=== PATIENT | male | born 1965 | race African-American/Black ===

== ENCOUNTER 2018-12-10 20:37 | Inpatient (IN) | payer MEDICARE, MEDICAID ==
[~2018-12-10] VITALS: Ht 190.5 cm; Wt 102.1 kg
[~2018-12-10 20:37] MED LIST: ALPR0.5T PO; AMLO10TA4 PO; ATOR10TA60 PO; CARB200T PO; CARV25TA PO; DOCU100C28 PO; ESCITALOPRAM OX20 MG PO; FERR325T14 PO; FOLI0.8T3 PO; HYDR-2868 PO; INSU100I11 SQ; ISOS20TA4 PO; LACO200T PO; LEVE100S18 PO; LINE600I IV; METO10TA81 PO; MIRT15TA3 PO; PANT20TA2 PO; PRED-220 PO; PYRI60TA PO; SENN-87 PO; SODI650T PO; SUCR1ORA5 PO; VIT1TABL56 PO
[2018-12-10 21:00] VITALS: BP 205/75
[2018-12-10 22:10] LABS: HEMOGLOBIN 6.7 g/dL (13.0-17.5)
[2018-12-10] MEDS ORDERED: PYRIDOSTIGMINE BROMIDE 60 MG TABLET PO SCH (22:30)
[2018-12-10 23:00] VITALS: BP 185/88
--- NOTE | 2018-12-10 23:13 | RAD ---
Single view chest dated 12/10/2018. Comparison made to 11/13/2018. CLINICAL INDICATION: Ventilator dependent. FINDINGS: Single upright portable exam performed. Tracheostomy tube in place, unchanged. Heart and mediastinal contours are stable. Consolidation and volume loss throughout the left hemithorax, with some improved aeration compared to the prior exam. There is masslike areas of consolidation and architectural distortion at the left upper lobe and left base. There is been interval improvement in airspace disease throughout the right lung. There is persistent small right pleural effusion. No pneumothorax. IMPRESSION: 1. Interval improvement in bilateral airspace disease compared to the 11/13/2018 exam. 2. Persistent areas of consolidation, architectural distortion and volume loss of the left upper lobe and left lower lobe, possibly related to known mass and/or scarring. Correlate clinically. 3. Small right pleural effusion. Electronically signed by: Martin Quinones MD (12/10/2018 11:10 PM) [facility]
[2018-12-10] MEDS: IV DEXTROSE 5 %-0.45 % NACL 1,000 ML IV SCH (23:36)
[2018-12-10 23:58] VITALS: BP 154/85
[2018-12-11] VITALS (26 sets, daily range): BP systolic 94–171; BP diastolic 51–96
[2018-12-11 00:55] LABS: BASE EXCESS ABG 11 mmol/L (-3-3); HCO3 ABG 36 mmol/L (21-28); PCO2 ABG 52 mmHg (35-46); PO2 ABG 191 mmHg (75-108); SAT O2 ABG 99 % (92-99)
[2018-12-11 01:11] LABS: FIO2 ABG 30
[2018-12-11 04:20] LABS: BASO # 0.1 x10^3/uL (0.0-0.2); BASO % 1 % (0-3); EOS # 0.3 x10^3/uL (0.0-0.7); EOS % 3 % (0-3); LYMPH # 0.5 x10^3/uL (1.0-4.8); LYMPH % 6 % (24-48); MEAN CORPUSCULAR HEMOGLOBIN 29 pg (25-35); MEAN CORPUSCULAR HGB CONC 34 g/dL (31-37); MEAN CORPUSCULAR VOLUME 87 fL (79-100); MONO # 1.2 x10^3/uL (0.0-1.1); MONO % 13 % (0-9); NEUT # 7.1 x10^3uL (1.8-7.7); NEUT % 77 % (31-73); PLATELET COUNT 158 x10^3/uL (140-400); RED BLOOD COUNT 2.17 x10^6/uL (4.30-5.70); RED CELL DISTRIBUTION WIDTH 16.4 % (11.5-14.5); WHITE BLOOD COUNT 9.2 x10^3/uL (4.0-11.0)
[2018-12-11 04:22] LABS: HEMATOCRIT 18.9 % (39.0-53.0); HEMOGLOBIN 6.4 g/dL (13.0-17.5)
[2018-12-11 04:29] LABS: PROTHROMBIN TIME PATIENT 17.9 SEC (11.7-14.0)
[2018-12-11 04:39] LABS: ALBUMIN 1.5 g/dL (3.4-5.0); ALBUMIN/GLOBULIN RATIO 0.4 (1.0-1.7); CREATININE 2.3 mg/dL (0.7-1.3); POTASSIUM 3.3 mmol/L (3.5-5.1); TOTAL BILIRUBIN 0.5 mg/dL (0.2-1.0); TOTAL PROTEIN 4.9 g/dL (6.4-8.2)
[2018-12-11 08:28] LABS: BASE EXCESS ABG 9 mmol/L (-3-3); HCO3 ABG 32 mmol/L (21-28); PCO2 ABG 42 mmHg (35-46); PO2 ABG 66 mmHg (75-108); SAT O2 ABG 93 % (92-99)
[2018-12-11 08:37] LABS: FIO2 ABG 30
--- NOTE | 2018-12-11 09:50 | PDOC2 ---
GI CONSULT Reason For Consult: GI Bleed HPI: HPI: 53 y/o male from [facility] who Dr. Duran has previously seen for h/o upper GI bleed. Had EGD at [facility] on 10/25/18 for dark-colored material from NG tube that showed low-grade reflux esophagitis, tiny hiatal hernia, and multiple erosions in the antrum (possibly related to NG tube). Placed on PPI without further bleeding issues. Has tracheostomy and PEG tube. No previous colonoscopy. No GB, liver, or pancreas history. ?SBO history at [facility]. Difficult history from him though he is very pleasant. Indicates some RLQ pain. Sent to [facility] for hematochezia. Hgb 6.7 and now 6.4 s/p 2 units pRBCs. H/o CKD, Cr 2.3 w/ BUN 39. INR is 1.5. Bleeding scan on 12/10 was c/w active GI bleed originating near splenic flexure. Per RN, passed red blood with clots this morning. Vitals are stable - actually sometimes has been hypertensive. IR is involved, concern w/ CKD - possibly would need dialysis if angio pursued. PMH: PMH: HTN, myasthenia gravis, seizures, pulm HTN, pulm fibrosis, TBI, CKD, thymoma, HLD, CVA, CAD, depression, dementia, thymectomy, CABG and stent, craniotomy FH: Family History: Cancer (father - colon?) Social History: Smoke: No ROS: Difficult to obtain. Vitals: Vitals: Vital Signs Date Time Temp Pulse Resp B/P (MAP) Pulse Ox O2 Delivery O2 Flow Rate FiO2 12/11/18 09:39 100 Ventilator 12/11/18 06:28 97.9 75 13 150/74 97.9 Labs: Labs: Laboratory Tests Test 12/10/18 22:00 12/11/18 00:50 12/11/18 04:10 12/11/18 08:20 Hemoglobin 6.7 g/dL (13.0-17.5) 6.4 g/dL (13.0-17.5) Hematocrit 21.0 % (39.0-53.0) 18.9 % (39.0-53.0) Mean Corpuscular Hemoglobin Concent 32 g/dL (31-37) 34 g/dL (31-37) O2 Saturation 99 % (92-99) 93 % (92-99) Arterial Blood pH 7.46 (7.35-7.45) 7.51 (7.35-7.45) Arterial Blood pCO2 at Patient Temp 52 mmHg (35-46) 42 mmHg (35-46) Arterial Blood pO2 at Patient Temp 191 mmHg (75-108) 66 mmHg (75-108) Arterial Blood HCO3 36 mmol/L (21-28) 32 mmol/L (21-28) Arterial Blood Base Excess 11 mmol/L (-3-3) 9 mmol/L (-3-3) FiO2 30 30 White Blood Count 9.2 x10^3/uL (4.0-11.0) Red Blood Count 2.17 x10^6/uL (4.30-5.70) Mean Corpuscular Volume 87 fL (79-100) Mean Corpuscular Hemoglobin 29 pg (25-35) Red Cell Distribution Width 16.4 % (11.5-14.5) Platelet Count 158 x10^3/uL (140-400) Neutrophils (%) (Auto) 77 % (31-73) Lymphocytes (%) (Auto) 6 % (24-48) Monocytes (%) (Auto) 13 % (0-9) Eosinophils (%) (Auto) 3 % (0-3) Basophils (%) (Auto) 1 % (0-3) Neutrophils # (Auto) 7.1 x10^3uL (1.8-7.7) Lymphocytes # (Auto) 0.5 x10^3/uL (1.0-4.8) Monocytes # (Auto) 1.2 x10^3/uL (0.0-1.1) Eosinophils # (Auto) 0.3 x10^3/uL (0.0-0.7) Basophils # (Auto) 0.1 x10^3/uL (0.0-0.2) Prothrombin Time 17.9 SEC (11.7-14.0) Prothromb Time International Ratio 1.5 (0.8-1.1) Sodium Level 142 mmol/L (136-145) Potassium Level 3.3 mmol/L (3.5-5.1) Chloride Level 105 mmol/L (98-107) Carbon Dioxide Level 34 mmol/L (21-32) Anion Gap 3 (6-14) Blood Urea Nitrogen 39 mg/dL (8-26) Creatinine 2.3 mg/dL (0.7-1.3) Estimated GFR (Cockcroft-Gault) 36.0 BUN/Creatinine Ratio 17 (6-20) Glucose Level 103 mg/dL (70-99) Calcium Level 8.0 mg/dL (8.5-10.1) Total Bilirubin 0.5 mg/dL (0.2-1.0) Aspartate Amino Transf (AST/SGOT) 12 U/L (15-37) Alanine Aminotransferase (ALT/SGPT) 14 U/L (16-63) Alkaline Phosphatase 60 U/L (46-116) Total Protein 4.9 g/dL (6.4-8.2) Albumin 1.5 g/dL (3.4-5.0) Albumin/Globulin Ratio 0.4 (1.0-1.7) Test 12/11/18 08:31 Glucose (Fingerstick) 99 mg/dL (70-99) Allergies: Coded Allergies: caffeine (Verified Allergy, Intermediate, 11/13/18) pt from select clindamycin (Verified Allergy, Intermediate, 11/13/18) from select clonidine (Verified Allergy, Intermediate, 11/13/18) from select shellfish derived (Verified Allergy, Intermediate, 11/13/18) from select Medications: Current Medications Medications (Trade) Dose Ordered Sig/John Route PRN Reason Start Time Stop Time Status Last Admin Dose Admin Pyridostigmine [place] (Mestinon) 60 mg QID PO 12/10/18 22:30 12/10/18 23:42 Dextrose/Sodium Chloride 1,000 ml @ 75 mls/hr [id number] IV 12/10/18 23:15 12/10/18 23:36 Imaging: Imaging: CXR 12/10 IMPRESSION: 1. Interval improvement in bilateral airspace disease compared to the 11/13/2018 exam. 2. Persistent areas of consolidation, architectural distortion and volume loss of the left upper lobe and left lower lobe, possibly related to known mass and/or scarring. Correlate clinically. 3. Small right pleural effusion. PE: GEN: NAD HEENT: Atraumatic, PERRL, tracheostomy LUNGS: diminished HEART: RRR ABD: NABS, S/ND, RLQ discomfort, PEG EXTREMITY: No edema SKIN: No rashes, no jaundice NEURO/PSYCH: A & O 3 A/P: A/P: Hematochezia, anemia, +bleeding scan CKD H/o "upper GI bleed" - recent EGD at another facility - ?erosions from NG tube GERD - has been on PPI CRC screen, FH CRC - none S/p tracheostomy and PEG placement ?h/o SBO -- Have d/w Dr. Nixon/IR - colonoscopy unlikely of any benefit - will observe for now and consider angio if bleeding continues. NPO, IV acid-poultry farmer, transfuse as needed. ZANE BEE December 11, 2018 09:50
[2018-12-11] MEDS ORDERED: ACETAMINOPHEN 650 MG/20.3 ML SOLUTION. PEG PRN (10:15)
--- NOTE | 2018-12-11 10:23 | PDOC ---
Infectious Disease Note Vital Sign Vital Signs Vital Signs Date Time Temp Pulse Resp B/P (MAP) Pulse Ox O2 Delivery O2 Flow Rate FiO2 12/11/18 09:39 100 Ventilator 12/11/18 06:28 97.9 75 13 150/74 97.9 Labs Lab Laboratory Tests Test 12/10/18 22:00 12/11/18 00:50 12/11/18 04:10 12/11/18 08:20 Hemoglobin 6.7 g/dL (13.0-17.5) 6.4 g/dL (13.0-17.5) Hematocrit 21.0 % (39.0-53.0) 18.9 % (39.0-53.0) Mean Corpuscular Hemoglobin Concent 32 g/dL (31-37) 34 g/dL (31-37) O2 Saturation 99 % (92-99) 93 % (92-99) Arterial Blood pH 7.46 (7.35-7.45) 7.51 (7.35-7.45) Arterial Blood pCO2 at Patient Temp 52 mmHg (35-46) 42 mmHg (35-46) Arterial Blood pO2 at Patient Temp 191 mmHg (75-108) 66 mmHg (75-108) Arterial Blood HCO3 36 mmol/L (21-28) 32 mmol/L (21-28) Arterial Blood Base Excess 11 mmol/L (-3-3) 9 mmol/L (-3-3) FiO2 30 30 White Blood Count 9.2 x10^3/uL (4.0-11.0) Red Blood Count 2.17 x10^6/uL (4.30-5.70) Mean Corpuscular Volume 87 fL (79-100) Mean Corpuscular Hemoglobin 29 pg (25-35) Red Cell Distribution Width 16.4 % (11.5-14.5) Platelet Count 158 x10^3/uL (140-400) Neutrophils (%) (Auto) 77 % (31-73) Lymphocytes (%) (Auto) 6 % (24-48) Monocytes (%) (Auto) 13 % (0-9) Eosinophils (%) (Auto) 3 % (0-3) Basophils (%) (Auto) 1 % (0-3) Neutrophils # (Auto) 7.1 x10^3uL (1.8-7.7) Lymphocytes # (Auto) 0.5 x10^3/uL (1.0-4.8) Monocytes # (Auto) 1.2 x10^3/uL (0.0-1.1) Eosinophils # (Auto) 0.3 x10^3/uL (0.0-0.7) Basophils # (Auto) 0.1 x10^3/uL (0.0-0.2) Prothrombin Time 17.9 SEC (11.7-14.0) Prothromb Time International Ratio 1.5 (0.8-1.1) Sodium Level 142 mmol/L (136-145) Potassium Level 3.3 mmol/L (3.5-5.1) Chloride Level 105 mmol/L (98-107) Carbon Dioxide Level 34 mmol/L (21-32) Anion Gap 3 (6-14) Blood Urea Nitrogen 39 mg/dL (8-26) Creatinine 2.3 mg/dL (0.7-1.3) Estimated GFR (Cockcroft-Gault) 36.0 BUN/Creatinine Ratio 17 (6-20) Glucose Level 103 mg/dL (70-99) Calcium Level 8.0 mg/dL (8.5-10.1) Total Bilirubin 0.5 mg/dL (0.2-1.0) Aspartate Amino Transf (AST/SGOT) 12 U/L (15-37) Alanine Aminotransferase (ALT/SGPT) 14 U/L (16-63) Alkaline Phosphatase 60 U/L (46-116) Total Protein 4.9 g/dL (6.4-8.2) Albumin 1.5 g/dL (3.4-5.0) Albumin/Globulin Ratio 0.4 (1.0-1.7) Test 12/11/18 08:31 Glucose (Fingerstick) 99 mg/dL (70-99) Objective Assessment pt seen, consult dictated Plan Plan of Care -- RENEE CARRILLO MD December 11, 2018 10:23
--- NOTE | 2018-12-11 10:24 | PDOC ---
Provider Note Provider Note history and physical dictated # [id number] RYLEY CLARK MD December 11, 2018 10:24
--- NOTE | 2018-12-11 10:25 | PDOC ---
Provider Note Provider Note IR NOTE Consulted for lower GI bleed. Positive tagged rbc scan localized to splenic flexure, descending colon. Patient currently hemodynamically normal. No distress, but continued intermittent blood per rectum per nurse. Patient also with renal failure, Cr 2.3. Nephrology consultation pending. GI consulted without plans for endoscopy or other intervention. 2 units blood given with essentially no change in Hb ( 6.7 to 6.4). 2 more units given, f/u Hb pending. INR borderline at 1.5. Will recheck in am. Ideally would continue to resuscitate and medically manage, and avoid IV contrast needed for angiography due to renal failure. Most lower gi bleeds will resolve on their own. Notably Cr has been elevated on past labs. Unsure if this represents baseline renal function. Await Nephrology input. Should patient become hemodynamically less stable, or clinically show evidence of more rapid bleeding. Angiography will be re-visited. QASIM LANGFORD MD December 11, 2018 10:25
[2018-12-11] MEDS ORDERED: POTASSIUM CHLORIDE 20 MEQ/15 ML ORAL LIQUID. PEG ONE (10:30)
[2018-12-11 10:45] LABS: HEMATOCRIT 23.5 % (39.0-53.0)
[2018-12-11] MEDS ORDERED: levETIRAcetam 1,000 MG in IV DEXTROSE 5% 100ML 100 ML IV SCH (11:00)
--- NOTE | 2018-12-11 11:11 | HP ---
ADMIT DATE: 12/11/2018 LOCATION: He is in Intensive Care Unit, room 112. HISTORY OF PRESENT ILLNESS: The patient is a 53-year-old -[place] male, who resides in a retirement with a past history of traumatic brain injury, seizure disorder, pulmonary fibrosis, hypertension, gastroesophageal reflux disease, coronary artery disease, depression, pulmonary hypertension and chronic kidney disease stage 3, admitted to [facility] at the Emergency Room on 12/14/2018 with nausea, vomiting and abdominal pain. He developed aspiration pneumonia, had to be intubated and placed on a ventilator. He could not be weaned off the ventilator. Tracheostomy and PEG were placed on 10/31/2018 as he had oropharyngeal dysphagia. His aspiration pneumonia was treated. He had labile hypertension. He could not be weaned off the ventilator, was admitted to [facility] on 11/06/2018. The patient could not be weaned off the ventilator at this facility either. He did have heme-positive stools. 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 At [facility], he did have a heme-positive stool. He did not receive any anticoagulation. The patient does have a seizure disorder and received Keppra. While he was at [facility], on 12/10/2018, he developed bloody stools with clots and had several bloody stools. As a result of that, the patient was sent to the [facility], where he had GI bleeding scan, which showed active bleeding at the splenic flexure of the colon, prompting admission to the Intensive Care Unit at [facility]. Through the night, he has continued to have some rectal bleeding and his hemoglobin was low at 6.7 to 6.4 and he has received 2 units of packed red blood cells during the night and is receiving another 2 units shortly. The patient's serum creatinine is stable around 2.3. ALLERGIES AND INTOLERANCES: CAFFEINE, CLINDAMYCIN, CLONIDINE AND SHELLFISH. MEDICATIONS PRIOR TO ADMISSION: Include lorazepam 0.5 mg IV every 6 hours p.r.n., Mucomyst 3 mL every 6 hours per respiratory therapy, hydralazine 100 mg t.i.d., carvedilol 25 mg b.i.d., cholestyramine 4 grams b.i.d., amlodipine 10 mg every day, DuoNebs nebulized treatments every 6 hours, furosemide 80 mg every day, trazodone 75 mg at bedtime, mirtazapine 30 mg at bedtime, Lexa 5/325 one every 6 hours p.r.n., melatonin 3 mg at bedtime, hydralazine 25 mg IV every 6 hours p.r.n. for systolic blood pressure greater than 160 or diastolic greater than 100, isosorbide dinitrate 20 mg every 8 hours, Protonix 20 mg every day, Humalog insulin low dose sliding scale every 6 hours, ferrous sulfate 300 mg b.i.d., Carafate 1 gram b.i.d., Tylenol 650 mg every 4 hours p.r.n. and atorvastatin 10 mg at bedtime. He is on lacosamide 200 mg b.i.d. Keppra, he is on 1500 mg b.i.d. He is on carbamazepine 300 mg b.i.d., vitamin B12 at 1000 mcg daily, Nephro-Zhanna 1 every day, Lexapro 20 mg every day, prednisone 10 mg every day, lorazepam 0.5 mg every 6 hours through his PEG, alprazolam 0.5 mg every 6 hours p.r.n. and Mestinon 60 mg every 6 hours. PAST MEDICAL HISTORY: Significant for myasthenia gravis, seizure disorder, pulmonary hypertension and pulmonary fibrosis, traumatic brain injury, chronic kidney disease stage 3, thymic carcinoma treated with thymectomy, hypertension, hyperlipidemia, cerebrovascular accident, hypertension, hyperlipidemia, gastroesophageal reflux disease, congestive heart failure, depression, coronary artery disease and also as mentioned above. SOCIAL HISTORY: Unavailable. FAMILY HISTORY: Unavailable. REVIEW OF SYSTEMS: Unavailable, as he is on the ventilator. PHYSICAL EXAMINATION: VITAL SIGNS: Temperature is 97.9 degrees, apical pulse regular at 75, respiratory rate 13, blood pressure 150/74 and oxygen saturation 100% on the ventilator. HEENT: Eyes are closed. Mouth is symmetrical. GENITOURINARY: He has got a tracheostomy hooked up to the ventilator. HEART: Reveals an S1, S2. There is no S3 or murmur. LUNGS: Clear anteriorly with occasional rhonchi on the left. ABDOMEN: Soft. Bowel sounds positive, not distended. He has got a gastrostomy tube. EXTREMITIES: Lower extremities without edema. SKIN: No rashes. NEUROLOGICAL EXAMINATION: He is sleeping. LABORATORY DATA: Review of his laboratory tests, his white count was 9.2; hemoglobin 6.4, it was 6.7; platelet count 158,000; polys 77 and lymphocytes 6. INR was 1.5. Sodium 142, potassium 3.3, chloride 105, total CO2 of 34, BUN 39, creatinine 2.3 and blood sugar 103. Liver function tests were normal. Albumin was 1.5. He had a chest x-ray done, which showed interval improvement compared to 10/24/2018, with persistent areas of consolidation and volume loss in the left upper lobe and left lower lobe and a small right pleural effusion. He had an electrocardiogram ordered, but the report is not on the chart. ASSESSMENT: 1. Lower gastrointestinal bleed from the splenic flexure of the colon. 2. Acute blood loss anemia. 3. Acute hypoxic and hypercapnic respiratory failure, on the ventilator. 4. Myasthenia gravis. 5. Tracheostomy. 6. Oropharyngeal dysphagia. 7. Chronic kidney disease stage 3. 8. Coronary artery disease. 9. Right subclavian vein thrombosis. 10. Hypertension. 11. Hyperlipidemia. 12. Seizure disorder. 13. Hypokalemia. 14. Severe protein-calorie malnutrition. PLAN: The plan at this time is to consult Dr. Duran for GI and briefly discuss the case with him. He has been seen by the nurse practitioner for the GI doctor. We will consult Dr. Ordaz for Nephrology for his chronic kidney disease and Dr. Nixon, the interventional radiologist, who is aware and on standby in case he needs an embolization procedure to stop the bleeding at the splenic flexure of the colon. Obviously, this is going to be a risk for his renal failure and it is possible it could advance his renal failure to even end-stage renal disease. We will continue with his IV fluids, check his hemoglobin and hematocrit every 6 hours and transfuse 2 units of packed red blood cells if the hemoglobin is less than 7. Keep him in the Intensive Care Unit and he will be on the ventilator. Continue his nebulizer treatments. We will renew the Keppra and the Tegretol and the other medications for his seizures. We will also consult Dr. Brian Meza for Infectious Disease, who has followed up at the other hospital and Dr. Morgan for Pulmonary for ventilator management and recheck his labs again tomorrow. RYLEY CLARK MD DR: GUS/philly JOB#: [id number] / [id number]
[2018-12-11] MEDS: PYRIDOSTIGMINE BROMIDE 60 MG TABLET PEG SCH ×3 (11:21→23:41)
[2018-12-11] MEDS: SUCRALFATE 1 GM/10 ML ORAL.SUSP. PEG SCH ×2 (11:21→20:38)
[2018-12-11] MEDS: predniSONE 10 MG TABLET PEG SCH (11:21)
[2018-12-11] MEDS: carBAMazepine 200 MG/10 ML ORAL.SUSP PEG SCH ×2 (11:21→20:37)
[2018-12-11] MEDS: LANSOPRAZOLE 30 MG TAB.RAP.DR PEG SCH (11:21)
[2018-12-11] MEDS: LACOSAMIDE 200 MG TABLET PEG SCH ×2 (11:21→20:37)
[2018-12-11] MEDS: FAMOTIDINE 20 MG/2 ML VIAL IVP SCH ×2 (11:21→20:37)
--- NOTE | 2018-12-11 11:44 | PDOC2 ---
CONSULT Date of Consult Date of Consult DATE: 12/11/18 TIME: 11:20 Reason for Consult Reason for Consult: " ckd may need dialysis after IR procedure" Source Source: Chart review History of Present Illness Reason for Visit: Pt is a 53-year-old -[place] male,who resides in a shelter with a past history of traumatic brain injury, Seizure disorder, pulmonary fibrosis, hypertension, coronary artery disease, depression, pulmonary hypertension and chronic kidney disease stage 3, He was hospitalized at [facility] with nausea, vomiting and abdominal pain. He developed aspiration pneumonia, had to be intubated and placed on a ventilator. He could not be weaned off the ventilator. Tracheostomy and PEG were placed on 10/31/2018 as he had oropharyngeal dysphagia. 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 While at [facility] , on 12/10/2018, he developed several bloody stools with clots and he was sent to [facility] He underwent GI bleeding scan, which showed active bleeding at the splenic flexure of the colon, S/P PRBC . Currently stable. Good UOP Social History No Current Medications Current Medications Current Medications Alprazolam (Xanax) 0.5 mg PRN Q6HRS PRN PO ANXIETY / AGITATION; Start 12/10/18 at 22:00 Pyridostigmine Dewy Rose (Mestinon) 60 mg QID PO Last administered on 12/10/18at 23:42; Admin Dose 60 MG; Start 12/10/18 at 22:30; Stop 12/11/18 at 10:20; Status DC Dextrose/Sodium Chloride 1,000 ml @ 75 mls/hr [id number] IV Last administered on 12/10/18at 23:36; Admin Dose 75 MLS/HR; Start 12/10/18 at 23:15 Famotidine (Pepcid Vial) 20 mg BID IVP ; Start 12/11/18 at 11:00 Albuterol/ Ipratropium (Duoneb) 3 ml RTQID NEB ; Start 12/11/18 at 12:00 Pantoprazole Sodium (Protonix) 40 mg DAILYAC PO ; Start 12/12/18 at 07:30; Stop 12/12/18 at 07:30; Status DC Acetaminophen (Tylenol) 650 mg PRN Q6HRS PRN PEG MILD PAIN / TEMP; Start 12/11/18 at 10:15 Sucralfate (Carafate) 1 gm BID PEG ; Start 12/11/18 at 11:00 Atorvastatin Calcium (Lipitor) 10 mg QHS PEG ; Start 12/11/18 at 21:00 Levetiracetam 1000 mg/Dextrose 110 ml @ 440 mls/hr Q12HR IV ; Start 12/11/18 at 11:00; Stop 12/11/18 at 11:00; Status DC Pyridostigmine Dewy Rose (Mestinon) 60 mg Q6HRS PEG ; Start 12/11/18 at 12:00 Prednisone (Prednisone) 10 mg DAILY PEG ; Start 12/11/18 at 11:00 Potassium Chloride (KCl Oral Soln) 20 meq 1X ONCE PEG ; Start 12/11/18 at 10:30; Stop 12/11/18 at 10:31; Status DC Lansoprazole (Prevacid) 30 mg DAILYAC PEG ; Start 12/11/18 at 11:30 Lacosamide (Vimpat) 200 mg BID PEG ; Start 12/11/18 at 11:00 Carbamazepine (TEGretol) 300 mg BID PEG ; Start 12/11/18 at 11:00 Levetiracetam (Keppra) 1,500 mg BID PEG ; Start 12/11/18 at 11:00 Acetylcysteine (Mucomyst 20% Resp Treatment) 600 mg Q6HRS NEB ; Start 12/11/18 at 12:00 Active Scripts Active Reported Mirtazapine 15 Mg Tablet 1 Tab PO QHS Hydralazine Hcl 25 Mg Tablet 3 Tab PO TID Zyvox (Linezolid) 600 Mg/300 Ml Iv.soln 600 Mg IV Q12HR Isosorbide Dinitrate 20 Mg Tablet 20 Mg PO TID Protonix (Pantoprazole Sodium) 20 Mg Tablet.dr 20 Mg PO DAILY Sodium Bicarbonate 650 Mg Tablet 2 Tab PO BID Humalog (Insulin Lispro) 100 Unit/1 Ml Insuln.pen 100 Unit SQ SSI PRN Ferrous Sulfate 325 Mg Tablet 1 Tab PO BID Carafate (Sucralfate) 1 Gm/10 Ml Oral.susp 10 Ml PO BID Atorvastatin Calcium 10 Mg Tablet 10 Mg PO HS Vimpat (Lacosamide) 200 Mg Tablet 200 Mg PO BID Levetiracetam 100 Mg/1 Ml Solution 1,500 Mg PO BID Coreg (Carvedilol) 25 Mg Tablet 25 Mg PO BIDWMEALS Tegretol (Carbamazepine) 200 Mg Tablet 300 Mg PO BID Metafolbic Tablet (Vit B12/Lmefolate Ca/Vit B6/B2) 1 Each Tablet 1 Each PO DAILY Nephro-Zhanna Tablet (Folic Acid/Vitamin B Comp W-C) 0.8 Mg Tablet 1 Tab PO DAILY Senna Lax (Sennosides) 8.6 Mg Tablet 8.6 Mg PO DAILY Docusate Sodium 100 Mg Capsule 1 Cap PO DAILY Escitalopram Oxalate 20 Mg Tablet 20 Mg PO DAILY Norvasc (Amlodipine Besylate) 10 Mg Tablet 10 Mg PO DAILY Reglan (Metoclopramide Hcl) 10 Mg Tablet 1 Tab PO TID Prednisone (Prednisone) 10 Mg Tablet 10 Mg PO DAILY Xanax (Alprazolam) 0.5 Mg Tablet 0.5 Mg PO PRN Q6HRS PRN Xanax (Alprazolam) 0.5 Mg Tablet 1 Tab PO QID Pyridostigmine Dewy Rose 60 Mg Tablet 60 Mg PO QID Allergies Allergies: Coded Allergies: caffeine (Verified Allergy, Intermediate, 11/13/18) pt from [facility] clindamycin (Verified Allergy, Intermediate, 11/13/18) from [facility] clonidine (Verified Allergy, Intermediate, 11/13/18) from [facility] shellfish derived (Verified Allergy, Intermediate, 11/13/18) from [facility] ROS Review of System As per HPI Physical Exam Physical Exam GEN: NAD HEENT: tracheostomy NECK: Supple LUNGS CTA ant , Non labored HEART: RRR ABD: PEG + EXTREMITY: No edema SKIN: No rashes, no jaundice NEURO : A & O 3 - No Ghosh Vital Signs Vital Signs Date Time Temp Pulse Resp B/P (MAP) Pulse Ox O2 Delivery O2 Flow Rate FiO2 12/11/18 09:39 100 Ventilator 12/11/18 06:28 97.9 75 13 150/74 97.9 Assessment & Plan PRIYA- on baseline ckd Due to GI bleed , Cr peaked at 2.7 Strict I/O , Continue IVF E-Lytes and acid base stable, 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 Oropharyngeal dysphagia- has PEG tube Coronary artery disease. Right subclavian vein thrombosis. Hypertension- Labile Dw RN at bedside Labs Labs Laboratory Tests Test 12/10/18 22:00 12/11/18 00:50 12/11/18 04:10 12/11/18 08:20 Hemoglobin 6.7 g/dL (13.0-17.5) 6.4 g/dL (13.0-17.5) Hematocrit 21.0 % (39.0-53.0) 18.9 % (39.0-53.0) Mean Corpuscular Hemoglobin Concent 32 g/dL (31-37) 34 g/dL (31-37) O2 Saturation 99 % (92-99) 93 % (92-99) Arterial Blood pH 7.46 (7.35-7.45) 7.51 (7.35-7.45) Arterial Blood pCO2 at Patient Temp 52 mmHg (35-46) 42 mmHg (35-46) Arterial Blood pO2 at Patient Temp 191 mmHg (75-108) 66 mmHg (75-108) Arterial Blood HCO3 36 mmol/L (21-28) 32 mmol/L (21-28) Arterial Blood Base Excess 11 mmol/L (-3-3) 9 mmol/L (-3-3) FiO2 30 30 White Blood Count 9.2 x10^3/uL (4.0-11.0) Red Blood Count 2.17 x10^6/uL (4.30-5.70) Mean Corpuscular Volume 87 fL (79-100) Mean Corpuscular Hemoglobin 29 pg (25-35) Red Cell Distribution Width 16.4 % (11.5-14.5) Platelet Count 158 x10^3/uL (140-400) Neutrophils (%) (Auto) 77 % (31-73) Lymphocytes (%) (Auto) 6 % (24-48) Monocytes (%) (Auto) 13 % (0-9) Eosinophils (%) (Auto) 3 % (0-3) Basophils (%) (Auto) 1 % (0-3) Neutrophils # (Auto) 7.1 x10^3uL (1.8-7.7) Lymphocytes # (Auto) 0.5 x10^3/uL (1.0-4.8) Monocytes # (Auto) 1.2 x10^3/uL (0.0-1.1) Eosinophils # (Auto) 0.3 x10^3/uL (0.0-0.7) Basophils # (Auto) 0.1 x10^3/uL (0.0-0.2) Prothrombin Time 17.9 SEC (11.7-14.0) Prothromb Time International Ratio 1.5 (0.8-1.1) Sodium Level 142 mmol/L (136-145) Potassium Level 3.3 mmol/L (3.5-5.1) Chloride Level 105 mmol/L (98-107) Carbon Dioxide Level 34 mmol/L (21-32) Anion Gap 3 (6-14) Blood Urea Nitrogen 39 mg/dL (8-26) Creatinine 2.3 mg/dL (0.7-1.3) Estimated GFR (Cockcroft-Gault) 36.0 BUN/Creatinine Ratio 17 (6-20) Glucose Level 103 mg/dL (70-99) Calcium Level 8.0 mg/dL (8.5-10.1) Total Bilirubin 0.5 mg/dL (0.2-1.0) Aspartate Amino Transf (AST/SGOT) 12 U/L (15-37) Alanine Aminotransferase (ALT/SGPT) 14 U/L (16-63) Alkaline Phosphatase 60 U/L (46-116) Total Protein 4.9 g/dL (6.4-8.2) Albumin 1.5 g/dL (3.4-5.0) Albumin/Globulin Ratio 0.4 (1.0-1.7) Test 12/11/18 08:31 12/11/18 10:20 Glucose (Fingerstick) 99 mg/dL (70-99) Hemoglobin 8.0 g/dL (13.0-17.5) Hematocrit 23.5 % (39.0-53.0) Mean Corpuscular Hemoglobin Concent 34 g/dL (31-37) Laboratory Tests Test 12/10/18 22:00 12/11/18 00:50 12/11/18 04:10 12/11/18 08:20 Hemoglobin 6.7 g/dL (13.0-17.5) 6.4 g/dL (13.0-17.5) Hematocrit 21.0 % (39.0-53.0) 18.9 % (39.0-53.0) Mean Corpuscular Hemoglobin Concent 32 g/dL (31-37) 34 g/dL (31-37) O2 Saturation 99 % (92-99) 93 % (92-99) Arterial Blood pH 7.46 (7.35-7.45) 7.51 (7.35-7.45) Arterial Blood pCO2 at Patient Temp 52 mmHg (35-46) 42 mmHg (35-46) Arterial Blood pO2 at Patient Temp 191 mmHg (75-108) 66 mmHg (75-108) Arterial Blood HCO3 36 mmol/L (21-28) 32 mmol/L (21-28) Arterial Blood Base Excess 11 mmol/L (-3-3) 9 mmol/L (-3-3) FiO2 30 30 White Blood Count 9.2 x10^3/uL (4.0-11.0) Red Blood Count 2.17 x10^6/uL (4.30-5.70) Mean Corpuscular Volume 87 fL (79-100) Mean Corpuscular Hemoglobin 29 pg (25-35) Red Cell Distribution Width 16.4 % (11.5-14.5) Platelet Count 158 x10^3/uL (140-400) Neutrophils (%) (Auto) 77 % (31-73) Lymphocytes (%) (Auto) 6 % (24-48) Monocytes (%) (Auto) 13 % (0-9) Eosinophils (%) (Auto) 3 % (0-3) Basophils (%) (Auto) 1 % (0-3) Neutrophils # (Auto) 7.1 x10^3uL (1.8-7.7) Lymphocytes # (Auto) 0.5 x10^3/uL (1.0-4.8) Monocytes # (Auto) 1.2 x10^3/uL (0.0-1.1) Eosinophils # (Auto) 0.3 x10^3/uL (0.0-0.7) Basophils # (Auto) 0.1 x10^3/uL (0.0-0.2) Prothrombin Time 17.9 SEC (11.7-14.0) Prothromb Time International Ratio 1.5 (0.8-1.1) Sodium Level 142 mmol/L (136-145) Potassium Level 3.3 mmol/L (3.5-5.1) Chloride Level 105 mmol/L (98-107) Carbon Dioxide Level 34 mmol/L (21-32) Anion Gap 3 (6-14) Blood Urea Nitrogen 39 mg/dL (8-26) Creatinine 2.3 mg/dL (0.7-1.3) Estimated GFR (Cockcroft-Gault) 36.0 BUN/Creatinine Ratio 17 (6-20) Glucose Level 103 mg/dL (70-99) Calcium Level 8.0 mg/dL (8.5-10.1) Total Bilirubin 0.5 mg/dL (0.2-1.0) Aspartate Amino Transf (AST/SGOT) 12 U/L (15-37) Alanine Aminotransferase (ALT/SGPT) 14 U/L (16-63) Alkaline Phosphatase 60 U/L (46-116) Total Protein 4.9 g/dL (6.4-8.2) Albumin 1.5 g/dL (3.4-5.0) Albumin/Globulin Ratio 0.4 (1.0-1.7) Test 12/11/18 08:31 12/11/18 10:20 Glucose (Fingerstick) 99 mg/dL (70-99) Hemoglobin 8.0 g/dL (13.0-17.5) Hematocrit 23.5 % (39.0-53.0) Mean Corpuscular Hemoglobin Concent 34 g/dL (31-37) Review All relevant outside records, renal labs, imaging studies, telemetry/EKG's were reviewed. Images Images GI bleeding study dated 12/10/2018. No comparison available. CLINICAL INDICATION: Bright red bloody stools. FINDINGS: Dedicated GI bleeding study performed after the intravenous menstruation 25.6 mCi of technetium 99m tagged RBCs. Imaging acquired at 5 minute frames for a total of 53 minutes. Initial 3 minute frames shows activity of the blood pool, liver and spleen. There is activity at the splenic flexure on the initial frame which extends inferiorly to fill the descending colon and sigmoid on the sequential images. No definite small bowel activity. IMPRESSION: Findings consistent with active GI bleed, probably originating near the splenic flexure of the colon. CARLOTA MURRAY MD December 11, 2018 11:44
[2018-12-11] MEDS: IPRATRPIUM/ALBUTEROL 0.5/2.5MG 3 ML NEBU. NEB SCH ×3 (11:53→19:59)
[2018-12-11] MEDS ORDERED: [UNRECOGNIZED DRUG - OTHER] NEB SCH (12:00)
[2018-12-11] MEDS ORDERED: ACETYLCYSTEINE 20% NEB SCH (12:00)
[2018-12-11] MEDS: IV DEXTROSE 5 %-0.45 % NACL 1,000 ML IV SCH (12:35)
--- NOTE | 2018-12-11 13:42 | EKG ---
[facility] [address] [place] [address] Test Date: 2018-12-11 Test Time: 06:09:12 Pat Name: KANDY THOMPSON Department: Room: 112 1 Gender: M Family [employer] Teacher: : 1965 Requested By: YRLEY CLARK Order Number: [id number] Reading MD: Measurements Intervals [place] Rate: 75 P: 118 NH: 214 QRS: 72 QRSD: 90 T: 133 QT: 426 QTc: 479 Interpretive Statements SINUS RHYTHM QRS(T) CONTOUR ABNORMALITY CONSIDER ANTEROSEPTAL INFARCT T ABNORMALITY IN HIGH LATERAL LEADS ABNORMAL ECG RI6.01 No previous ECG available for comparison
--- NOTE | 2018-12-11 14:40 | NUR ---
SS following for discharge planning. SS received notification that pt was from [facility], ; fax [phone]. SS contacted [facility] to verify pt's previous placement. [facility] verified that pt was a resident from there facility and was able to return when medically stable for discharge.
--- NOTE | 2018-12-11 14:52 | PDOC ---
PULMONARY PROGRESS NOTES Vitals Vital Signs Date Time Temp Pulse Resp B/P (MAP) Pulse Ox O2 Delivery O2 Flow Rate FiO2 12/11/18 13:35 100 Ventilator 12/11/18 13:00 75 18 131/69 (89) 12/11/18 07:00 97.8 97.8 Labs Laboratory Tests Test 12/10/18 22:00 12/11/18 00:50 12/11/18 04:10 12/11/18 08:20 Hemoglobin 6.7 g/dL (13.0-17.5) 6.4 g/dL (13.0-17.5) Hematocrit 21.0 % (39.0-53.0) 18.9 % (39.0-53.0) Mean Corpuscular Hemoglobin Concent 32 g/dL (31-37) 34 g/dL (31-37) O2 Saturation 99 % (92-99) 93 % (92-99) Arterial Blood pH 7.46 (7.35-7.45) 7.51 (7.35-7.45) Arterial Blood pCO2 at Patient Temp 52 mmHg (35-46) 42 mmHg (35-46) Arterial Blood pO2 at Patient Temp 191 mmHg (75-108) 66 mmHg (75-108) Arterial Blood HCO3 36 mmol/L (21-28) 32 mmol/L (21-28) Arterial Blood Base Excess 11 mmol/L (-3-3) 9 mmol/L (-3-3) FiO2 30 30 White Blood Count 9.2 x10^3/uL (4.0-11.0) Red Blood Count 2.17 x10^6/uL (4.30-5.70) Mean Corpuscular Volume 87 fL (79-100) Mean Corpuscular Hemoglobin 29 pg (25-35) Red Cell Distribution Width 16.4 % (11.5-14.5) Platelet Count 158 x10^3/uL (140-400) Neutrophils (%) (Auto) 77 % (31-73) Lymphocytes (%) (Auto) 6 % (24-48) Monocytes (%) (Auto) 13 % (0-9) Eosinophils (%) (Auto) 3 % (0-3) Basophils (%) (Auto) 1 % (0-3) Neutrophils # (Auto) 7.1 x10^3uL (1.8-7.7) Lymphocytes # (Auto) 0.5 x10^3/uL (1.0-4.8) Monocytes # (Auto) 1.2 x10^3/uL (0.0-1.1) Eosinophils # (Auto) 0.3 x10^3/uL (0.0-0.7) Basophils # (Auto) 0.1 x10^3/uL (0.0-0.2) Prothrombin Time 17.9 SEC (11.7-14.0) Prothromb Time International Ratio 1.5 (0.8-1.1) Sodium Level 142 mmol/L (136-145) Potassium Level 3.3 mmol/L (3.5-5.1) Chloride Level 105 mmol/L (98-107) Carbon Dioxide Level 34 mmol/L (21-32) Anion Gap 3 (6-14) Blood Urea Nitrogen 39 mg/dL (8-26) Creatinine 2.3 mg/dL (0.7-1.3) Estimated GFR (Cockcroft-Gault) 36.0 BUN/Creatinine Ratio 17 (6-20) Glucose Level 103 mg/dL (70-99) Calcium Level 8.0 mg/dL (8.5-10.1) Total Bilirubin 0.5 mg/dL (0.2-1.0) Aspartate Amino Transf (AST/SGOT) 12 U/L (15-37) Alanine Aminotransferase (ALT/SGPT) 14 U/L (16-63) Alkaline Phosphatase 60 U/L (46-116) Total Protein 4.9 g/dL (6.4-8.2) Albumin 1.5 g/dL (3.4-5.0) Albumin/Globulin Ratio 0.4 (1.0-1.7) Test 12/11/18 08:31 12/11/18 10:20 12/11/18 13:55 Glucose (Fingerstick) 99 mg/dL (70-99) Hemoglobin 8.0 g/dL (13.0-17.5) 7.3 g/dL (13.0-17.5) Hematocrit 23.5 % (39.0-53.0) Mean Corpuscular Hemoglobin Concent 34 g/dL (31-37) Laboratory Tests Test 12/10/18 22:00 12/11/18 00:50 12/11/18 04:10 12/11/18 08:20 Hemoglobin 6.7 g/dL (13.0-17.5) 6.4 g/dL (13.0-17.5) Hematocrit 21.0 % (39.0-53.0) 18.9 % (39.0-53.0) Mean Corpuscular Hemoglobin Concent 32 g/dL (31-37) 34 g/dL (31-37) O2 Saturation 99 % (92-99) 93 % (92-99) Arterial Blood pH 7.46 (7.35-7.45) 7.51 (7.35-7.45) Arterial Blood pCO2 at Patient Temp 52 mmHg (35-46) 42 mmHg (35-46) Arterial Blood pO2 at Patient Temp 191 mmHg (75-108) 66 mmHg (75-108) Arterial Blood HCO3 36 mmol/L (21-28) 32 mmol/L (21-28) Arterial Blood Base Excess 11 mmol/L (-3-3) 9 mmol/L (-3-3) FiO2 30 30 White Blood Count 9.2 x10^3/uL (4.0-11.0) Red Blood Count 2.17 x10^6/uL (4.30-5.70) Mean Corpuscular Volume 87 fL (79-100) Mean Corpuscular Hemoglobin 29 pg (25-35) Red Cell Distribution Width 16.4 % (11.5-14.5) Platelet Count 158 x10^3/uL (140-400) Neutrophils (%) (Auto) 77 % (31-73) Lymphocytes (%) (Auto) 6 % (24-48) Monocytes (%) (Auto) 13 % (0-9) Eosinophils (%) (Auto) 3 % (0-3) Basophils (%) (Auto) 1 % (0-3) Neutrophils # (Auto) 7.1 x10^3uL (1.8-7.7) Lymphocytes # (Auto) 0.5 x10^3/uL (1.0-4.8) Monocytes # (Auto) 1.2 x10^3/uL (0.0-1.1) Eosinophils # (Auto) 0.3 x10^3/uL (0.0-0.7) Basophils # (Auto) 0.1 x10^3/uL (0.0-0.2) Prothrombin Time 17.9 SEC (11.7-14.0) Prothromb Time International Ratio 1.5 (0.8-1.1) Sodium Level 142 mmol/L (136-145) Potassium Level 3.3 mmol/L (3.5-5.1) Chloride Level 105 mmol/L (98-107) Carbon Dioxide Level 34 mmol/L (21-32) Anion Gap 3 (6-14) Blood Urea Nitrogen 39 mg/dL (8-26) Creatinine 2.3 mg/dL (0.7-1.3) Estimated GFR (Cockcroft-Gault) 36.0 BUN/Creatinine Ratio 17 (6-20) Glucose Level 103 mg/dL (70-99) Calcium Level 8.0 mg/dL (8.5-10.1) Total Bilirubin 0.5 mg/dL (0.2-1.0) Aspartate Amino Transf (AST/SGOT) 12 U/L (15-37) Alanine Aminotransferase (ALT/SGPT) 14 U/L (16-63) Alkaline Phosphatase 60 U/L (46-116) Total Protein 4.9 g/dL (6.4-8.2) Albumin 1.5 g/dL (3.4-5.0) Albumin/Globulin Ratio 0.4 (1.0-1.7) Test 12/11/18 08:31 12/11/18 10:20 12/11/18 13:55 Glucose (Fingerstick) 99 mg/dL (70-99) Hemoglobin 8.0 g/dL (13.0-17.5) 7.3 g/dL (13.0-17.5) Hematocrit 23.5 % (39.0-53.0) Mean Corpuscular Hemoglobin Concent 34 g/dL (31-37) Medications Active Scripts Medications Dose Route/Sig Max Daily Dose Days Date Category Mirtazapine 15 Mg Tablet 1 Tab PO QHS 11/13/18 Reported Hydralazine Hcl 25 Mg Tablet 3 Tab PO TID 11/13/18 Reported Zyvox (Linezolid) 600 Mg/300 Ml Iv.soln 600 Mg IV Q12HR 11/13/18 Reported Isosorbide Dinitrate 20 Mg Tablet 20 Mg PO TID 11/13/18 Reported Protonix (Pantoprazole Sodium) 20 Mg Tablet.dr 20 Mg PO DAILY 11/13/18 Reported Sodium Bicarbonate 650 Mg Tablet 2 Tab PO BID 11/13/18 Reported Humalog (Insulin Lispro) 100 Unit/1 Ml Insuln.pen 100 Unit SQ SSI PRN 11/13/18 Reported Ferrous Sulfate 325 Mg Tablet 1 Tab PO BID 11/13/18 Reported Carafate (Sucralfate) 1 Gm/10 Ml Oral.susp 10 Ml PO BID 11/13/18 Reported Atorvastatin Calcium 10 Mg Tablet 10 Mg PO HS 11/13/18 Reported Vimpat (Lacosamide) 200 Mg Tablet 200 Mg PO BID 11/13/18 Reported Levetiracetam 100 Mg/1 Ml Solution 1,500 Mg PO BID 11/13/18 Reported Coreg (Carvedilol) 25 Mg Tablet 25 Mg PO BIDWMEALS 11/13/18 Reported Tegretol (Carbamazepine) 200 Mg Tablet 300 Mg PO BID 11/13/18 Reported Metafolbic Tablet (Vit B12/Lmefolate Ca/Vit B6/B2) 1 Each Tablet 1 Each PO DAILY 11/13/18 Reported Nephro-Zhanna Tablet (Folic Acid/Vitamin B Comp W-C) 0.8 Mg Tablet 1 Tab PO DAILY 11/13/18 Reported Senna Lax (Sennosides) 8.6 Mg Tablet 8.6 Mg PO DAILY 11/13/18 Reported Docusate Sodium 100 Mg Capsule 1 Cap PO DAILY 11/13/18 Reported Escitalopram Oxalate 20 Mg Tablet 20 Mg PO DAILY 11/13/18 Reported Norvasc (Amlodipine Besylate) 10 Mg Tablet 10 Mg PO DAILY 11/13/18 Reported Reglan (Metoclopramide Hcl) 10 Mg Tablet 1 Tab PO TID 11/13/18 Reported Prednisone (Prednisone) 10 Mg Tablet 10 Mg PO DAILY 11/13/18 Reported Xanax (Alprazolam) 0.5 Mg Tablet 0.5 Mg PO PRN Q6HRS PRN 11/13/18 Reported Xanax (Alprazolam) 0.5 Mg Tablet 1 Tab PO QID 11/13/18 Reported Pyridostigmine [place] 60 Mg Tablet 60 Mg PO QID 11/13/18 Reported Impression . FULL NOTE DICTATED THANKS GALLO RICHARD MD December 11, 2018 14:52
--- NOTE | 2018-12-11 19:25 | NUR ---
Patient consented to blood tx as needed for hgb < 7.0. Patient also consented for endoscopy procedures if able to be done. Patient also consented to IR angio procedure if bleeding continues and is needed. Patient understands that this may lead to a need for dialysis and gave consent for temp. dialysis cath placement if needed. DPOA was called and confirmed patients wishes.
[2018-12-11] MEDS: ALPRAZolam 0.5 MG TABLET PO PRN (20:37)
[2018-12-11] MEDS: ATORVASTATIN CALCIUM 10 MG TABLET. PEG SCH (20:37)
--- NOTE | 2018-12-11 21:49 | CONS ---
DATE OF CONSULTATION: 12/11/2018 REQUESTING PHYSICIAN: Dr. Morales. REASON FOR CONSULTATION: History of MRSA pneumonia. HISTORY OF PRESENT ILLNESS: This is a 53-year-old -[place] gentleman with history of pulmonary fibrosis and myasthenia gravis who was transferred from [facility]. The patient was transferred there from [facility] with respiratory failure, tracheostomy and on a ventilator. The patient in fact had MRSA and, I believe, Klebsiella, so he ended up getting Zyvox and Rocephin that he finished. The patient started having a GI bleed, hence the patient was transferred for further management. The patient is alert, awake. The patient denies any nausea, vomiting. Has had black stool and kailyn red blood per rectum. PAST MEDICAL HISTORY: Positive for myasthenia gravis, pulmonary fibrosis, acute kidney injury on chronic kidney disease, seizure disorder, hyperlipidemia, CVA, hypertension, gastroesophageal reflux disease, dementia, congestive heart failure, coronary artery disease, traumatic brain injury and respiratory failure on a ventilator. The patient has had a thymectomy done in the past and trach and PEG done. SOCIAL HISTORY: Negative for smoking, alcohol, illicit drug use. ALLERGIES: LISTED ALLERGIC TO CLINDAMYCIN. CURRENT MEDICATIONS: Reviewed. REVIEW OF SYSTEMS: As per HPI, all other systems reviewed are negative. PHYSICAL EXAMINATION: GENERAL: Alert, oriented gentleman, not in distress. VITAL SIGNS: Stable, afebrile. HEENT: NAD. NECK: Supple, no JVP, no lymphadenopathy. LUNGS: Decreased breath sounds. HEART: S1, S2 regular. No gallop or murmur. ABDOMEN: Soft, nontender, no organomegaly. EXTREMITIES: Significant edema of the upper extremity, more so on the right than left. Lower extremities are unremarkable. NEUROLOGIC: The patient is alert, awake, and appropriate, follows command, but unable to move much of extremities. LABORATORY DATA: The hemoglobin was down to 6.4. BUN is 39, creatinine 2.3. Chest x-ray is showing improvement of bilateral airspace disease. IMPRESSION: 1. Methicillin-resistant Staphylococcus aureus pneumonia, which has been treated. 2. Respiratory failure. 3. Gastrointestinal bleed. 4. Myasthenia gravis. RECOMMENDATIONS: 1. Would continue the GI bleed treatment per Radiology and Dr. Duran. 2. Supportive care. 3. No need for antibiotics at this stage, will closely follow and intervene if needed. Supportive care and we will continue to follow. Thank you very much, Dr. Morales, for giving me the opportunity to participate in this patient's care. RENEE CARRILLO MD DR: KIKA/philly JOB#: [id number] / [id number]
[2018-12-12] VITALS (25 sets, daily range): BP systolic 99–175; BP diastolic 47–99
--- NOTE | 2018-12-12 01:43 | CONS ---
DATE OF CONSULTATION: 12/11/2018 ATTENDING PHYSICIAN: Martin Morales M.D. REASON FOR CONSULTATION: The patient seen in Pulmonary consultation at the request of Dr. Morales for vent management. HISTORY OF PRESENT ILLNESS: The patient is a 53-year old who was residing at [facility]. He was initially admitted on 10/14/2018 at [facility] with nausea, vomiting and abdominal pain. He had 10 bouts of nonbloody, non-ground emesis and abdominal tenderness. In the Emergency Room, he was noted initially to have a pCO2 of 88. He was intubated. Eventually, he required tracheotomy. His stent at [place] included aspiration pneumonia. He was one time extubated and reintubated and underwent tracheotomy on 10/30/2018 and PEG tube placement on 10/31/2018. The patient was diagnosed with small-bowel obstruction and did not require surgery. He had a PEG tube placement and he was transferred to [facility]. Yesterday evening, he was transferred to [facility] for acute GI bleed, low hemoglobin. The patient is currently awake, alert and following commands. He is on assist control ventilation. He had an arterial blood gas this morning revealing a pH of 7.46, PaCO2 of 7.51, pCO2 of 42 and pO2 of 66. His hemoglobin in the last evening was 6.7, he has been transfused, went up to 8 and repeat was 7.3. He has been seen by the GI Service. PAST MEDICAL HISTORY: 1. Pulmonary fibrosis. 2. History of seizure disorder. 3. Hyperlipidemia. 4. Previous CVA. 5. Gastroesophageal reflux. 6. Hypertension. 7. Questionable dementia. 8. Coronary artery disease with previous stenting and CHF. 9. History of myasthenia gravis. Apparently, he underwent plasmapheresis in October 20 of this year. PAST SURGICAL HISTORY: Previous craniotomy for traumatic brain injury status post PEG tube placement on 10/31/2018 status post tracheotomy 10/30/2018. He has also had coronary artery bypass grafting and stenting in the past. He had thymectomy. ALLERGIES: Listed to CAFFEINE, CLINDAMYCIN, CODEINE and SHELLFISH. FAMILY HISTORY: Mother at 52 from brain aneurysm. Father had colon cancer and at the age of 73. SOCIAL HISTORY: No tobacco. Lived at [facility] prior to this admission. REVIEW OF SYSTEMS: Unobtainable secondary to the patient's condition. CURRENT MEDICATIONS: List was reviewed. PHYSICAL EXAMINATION: GENERAL APPEARANCE: The patient was awake, alert and following commands. VITAL SIGNS: Stable. O2 saturation was greater than 92%. HEENT: Eyes, the sclerae were nonicteric. NECK: Jugular venous distention was not elevated and could not be assessed secondary to body habitus. CHEST: Full expansion. LUNGS: Anteriorly were clear. No wheezes. CARDIOVASCULAR: Regular rate and rhythm with S1 and S2. No S3. ABDOMEN: Soft and nontender. PEG in place. EXTREMITIES: No clubbing or cyanosis. A 1+ edema. Upper right extremity was severely edematous. NEUROLOGICAL: The patient was awake, alert and following commands. A detailed neuro exam was not performed. LABORATORY DATA: Labs as indicated above. INR was 1.5. Electrolytes were deranged. BUN was elevated and creatinine was elevated. Albumin was low. RADIOLOGICAL DATA: Chest x-ray was reviewed. There are bilateral pulmonary infiltrates. There is a small right-sided effusion and persistent consolidation and architectural distortion of the left upper lobe and left lower lobe. IMPRESSION: 1. Gkcar-[id number]-[id number] hypoxemic respiratory failure. 2. Acute drop in hemoglobin. 3. Acute gastrointestinal bleed. 4. History of small-bowel obstruction, corrected with nonsurgical. 5. Prior history of chronic obstructive pulmonary disease, obstructive sleep apnea and pulmonary fibrosis along with secondary pulmonary hypertension, the patient had been on chronic steroid use. 6. History of myasthenia gravis, status post thymectomy. 7. Recent sepsis and aspiration pneumonia. 8. Chronic kidney disease. 9. History of seizure/traumatic brain injury. 10. Deep venous thrombosis of the right upper extremity. 11. Coronary artery disease with previous coronary artery bypass grafting. 12. Severe protein malnutrition. 13. Hematochezia. 14. Gastroesophageal reflux. PLAN: 1. We will continue support with assist-control ventilation at bedtime, pressure support during the day. 2. Follow GI recommendations. 3. Monitor H and H closely. 4. Interventional radiologist has been consulted. Current recommendations to be medically managed for now in order to avoid further IV contrast needed for angiography. 5. Follow Nephrology input. 6. Consult ID, already performed. 7. DVT and GI prophylaxis. 8. Nebulized treatments. 9. I do appreciate the privilege in sharing in the patient's care. Total cumulative critical care time of 40 minutes. GALLO RICHARD MD DR: Jennifer JOB#: [id number] / [id number]
[2018-12-12] MEDS: IV DEXTROSE 5 %-0.45 % NACL 1,000 ML IV SCH ×2 (02:11→15:15)
[2018-12-12 05:32] LABS: BASO # 0.1 x10^3/uL (0.0-0.2); BASO % 1 % (0-3); EOS # 0.3 x10^3/uL (0.0-0.7); EOS % 4 % (0-3); HEMATOCRIT 23.7 % (39.0-53.0); LYMPH # 0.6 x10^3/uL (1.0-4.8); LYMPH % 9 % (24-48); MEAN CORPUSCULAR HEMOGLOBIN 30 pg (25-35); MEAN CORPUSCULAR HGB CONC 34 g/dL (31-37); MEAN CORPUSCULAR VOLUME 88 fL (79-100); MONO # 1.4 x10^3/uL (0.0-1.1); MONO % 19 % (0-9); NEUT # 4.8 x10^3uL (1.8-7.7); NEUT % 67 % (31-73); PLATELET COUNT 135 x10^3/uL (140-400); RED BLOOD COUNT 2.69 x10^6/uL (4.30-5.70); RED CELL DISTRIBUTION WIDTH 15.5 % (11.5-14.5); WHITE BLOOD COUNT 7.2 x10^3/uL (4.0-11.0)
[2018-12-12 05:44] LABS: CALCIUM 7.8 mg/dL (8.5-10.1); CREATININE 2.5 mg/dL (0.7-1.3); GFR 32.7; POTASSIUM 3.5 mmol/L (3.5-5.1)
[2018-12-12] MEDS: PYRIDOSTIGMINE BROMIDE 60 MG TABLET PEG SCH ×3 (06:08→18:21)
--- NOTE | 2018-12-12 06:44 | RAD ---
AP chest. HISTORY: Respiratory failure AP view was taken of the chest. Tracheostomy tube is unchanged. There is a right pleural effusion. Patient's had a previous sternotomy. Tracheostomy tube is in good position. There is chronic atelectasis or infiltrate and bronchiectasis in the left upper lobe. There is a right pleural effusion. IMPRESSION: 1. No change compared to the prior study. Electronically signed by: Mazin Cutler MD (12/12/2018 6:41 AM) [id number]
[2018-12-12] MEDS ORDERED: PANTOPRAZOLE 40 MG TABLET.DR. PO SCH (07:30)
[2018-12-12] MEDS: LANSOPRAZOLE 30 MG TAB.RAP.DR PEG SCH (07:30)
--- NOTE | 2018-12-12 08:18 | PDOC ---
Infectious Disease Note Subjective Subjective awake, on vent ROS ROS no n/v/d/ bleeding has improved Vital Sign Vital Signs Vital Signs Date Time Temp Pulse Resp B/P (MAP) Pulse Ox O2 Delivery O2 Flow Rate FiO2 12/12/18 06:00 73 18 119/53 (75) 100 Ventilator 12/12/18 04:00 97.3 97.3 Physical Exam PHYSICAL EXAM GENERAL: Alert, oriented gentleman, not in distress. VITAL SIGNS: Stable, afebrile. HEENT: NAD. NECK: Supple, no JVP, no lymphadenopathy. LUNGS: Decreased breath sounds. HEART: S1, S2 regular. No gallop or murmur. ABDOMEN: Soft, nontender, no organomegaly. EXTREMITIES: Significant edema of the upper extremity, more so on the right than left. Lower extremities are unremarkable. NEUROLOGIC: The patient is alert, awake, and appropriate, follows command, but unable to move much of extremities. Labs Lab Laboratory Tests Test 12/11/18 08:20 12/11/18 08:31 12/11/18 10:20 12/11/18 13:55 O2 Saturation 93 % (92-99) Arterial Blood pH 7.51 (7.35-7.45) Arterial Blood pCO2 at Patient Temp 42 mmHg (35-46) Arterial Blood pO2 at Patient Temp 66 mmHg (75-108) Arterial Blood HCO3 32 mmol/L (21-28) Arterial Blood Base Excess 9 mmol/L (-3-3) FiO2 30 Glucose (Fingerstick) 99 mg/dL (70-99) Hemoglobin 8.0 g/dL (13.0-17.5) 7.3 g/dL (13.0-17.5) Hematocrit 23.5 % (39.0-53.0) Mean Corpuscular Hemoglobin Concent 34 g/dL (31-37) Test 12/11/18 18:40 12/12/18 00:00 12/12/18 05:22 Hemoglobin 7.5 g/dL (13.0-17.5) 6.2 g/dL (13.0-17.5) 8.0 g/dL (13.0-17.5) White Blood Count 7.2 x10^3/uL (4.0-11.0) Red Blood Count 2.69 x10^6/uL (4.30-5.70) Hematocrit 23.7 % (39.0-53.0) Mean Corpuscular Volume 88 fL (79-100) Mean Corpuscular Hemoglobin 30 pg (25-35) Mean Corpuscular Hemoglobin Concent 34 g/dL (31-37) Red Cell Distribution Width 15.5 % (11.5-14.5) Platelet Count 135 x10^3/uL (140-400) Neutrophils (%) (Auto) 67 % (31-73) Lymphocytes (%) (Auto) 9 % (24-48) Monocytes (%) (Auto) 19 % (0-9) Eosinophils (%) (Auto) 4 % (0-3) Basophils (%) (Auto) 1 % (0-3) Neutrophils # (Auto) 4.8 x10^3uL (1.8-7.7) Lymphocytes # (Auto) 0.6 x10^3/uL (1.0-4.8) Monocytes # (Auto) 1.4 x10^3/uL (0.0-1.1) Eosinophils # (Auto) 0.3 x10^3/uL (0.0-0.7) Basophils # (Auto) 0.1 x10^3/uL (0.0-0.2) Sodium Level 144 mmol/L (136-145) Potassium Level 3.5 mmol/L (3.5-5.1) Chloride Level 106 mmol/L (98-107) Carbon Dioxide Level 35 mmol/L (21-32) Anion Gap 3 (6-14) Blood Urea Nitrogen 41 mg/dL (8-26) Creatinine 2.5 mg/dL (0.7-1.3) Estimated GFR (Cockcroft-Gault) 32.7 Glucose Level 109 mg/dL (70-99) Calcium Level 7.8 mg/dL (8.5-10.1) Objective Assessment 1. Methicillin-resistant Staphylococcus aureus pneumonia, which has been treated. 2. Respiratory failure. 3. Gastrointestinal bleed. 4. Myasthenia gravis. Plan Plan of Care cont supportive care no antibiotics for now RENEE CARRILLO MD December 12, 2018 08:18
--- NOTE | 2018-12-12 08:43 | PDOC ---
SUBJECTIVE ROS Stable, awake , propped up in bed Per RN GI bleed and frequency of BM slowed down OBJECTIVE Vital Signs Vital Signs Date Time Temp Pulse Resp B/P (MAP) Pulse Ox O2 Delivery O2 Flow Rate FiO2 12/12/18 06:00 73 18 119/53 (75) 100 Ventilator 12/12/18 04:00 97.3 97.3 I & 0 Intake and Output 12/12/18 07:00 Intake Total 2419 ml Output Total 500 ml Balance 1919 ml Intake Oral 0 ml IV Total 765 ml Blood Product 674 ml Blood Product IV Normal Saline Flush 980 ml Output Urine Total 500 ml # Bowel Movements 2 PHYSICAL EXAM Physical Exam GEN: NAD HEENT: tracheostomy NECK: Supple LUNGS CTA ant , Non labored HEART: RRR ABD: PEG + EXTREMITY: No edema SKIN: No rashes, no jaundice NEURO : A & O 3 - No Ghosh DIAGNOSIS/ASSESSMENT Assessment & Plan PRIYA- on ckd Suspect Due to GI bleed , Cr peaked at 2.7 , stable Strict I/O , Continue IVF E-Lytes and acid base stable, 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 Oropharyngeal dysphagia- has PEG tube Coronary artery disease. Right subclavian vein thrombosis. Hypertension- Labile Dw RN at bedside COMMENT/RELEVANT DATA Meds Current Medications Medications (Trade) Dose Ordered Sig/John Start Time Stop Time Status Last Admin Dose Admin Acetaminophen (Tylenol) 650 mg PRN Q6HRS PRN 12/11/18 10:15 Acetylcysteine (Mucomyst 20% Resp Treatment) 600 mg Q6HRS 12/11/18 12:00 Cancel Albuterol/ Ipratropium (Duoneb) 3 ml RTQID 12/11/18 12:00 12/11/18 19:59 3 ML Alprazolam (Xanax) 0.5 mg PRN Q6HRS PRN 12/10/18 22:00 12/11/18 20:37 0.5 MG Atorvastatin Calcium (Lipitor) 10 mg QHS 12/11/18 21:00 12/11/18 20:37 10 MG Carbamazepine (TEGretol) 300 mg BID 12/11/18 11:00 12/11/18 20:37 300 MG Dextrose/Sodium Chloride 1,000 ml @ 75 mls/hr [id number] 12/10/18 23:15 12/12/18 02:11 75 MLS/HR Famotidine (Pepcid Vial) 20 mg BID 12/11/18 11:00 12/11/18 20:37 20 MG Lacosamide (Vimpat) 200 mg BID 12/11/18 11:00 12/11/18 20:37 200 MG Lansoprazole (Prevacid) 30 mg DAILYAC 12/11/18 11:30 12/11/18 11:21 30 MG Levetiracetam (Keppra) 1,500 mg BID 12/11/18 11:00 12/11/18 20:37 1,500 MG Levetiracetam 1000 mg/Dextrose 110 ml @ 440 mls/hr Q12HR 12/11/18 11:00 12/11/18 11:00 DC Pantoprazole Sodium (Protonix) 40 mg DAILYAC 12/12/18 07:30 12/12/18 07:30 DC Potassium Chloride (KCl Oral Soln) 20 meq 1X ONCE 12/11/18 10:30 12/11/18 10:31 DC 12/11/18 11:20 20 MEQ Prednisone (Prednisone) 10 mg DAILY 12/11/18 11:00 12/11/18 11:21 10 MG Pyridostigmine [place] (Mestinon) 60 mg Q6HRS 12/11/18 12:00 12/12/18 06:08 60 MG Sucralfate (Carafate) 1 gm BID 12/11/18 11:00 12/11/18 20:38 1 GM Lab Laboratory Tests Test 12/11/18 10:20 12/11/18 13:55 12/11/18 18:40 12/12/18 00:00 Hemoglobin 8.0 g/dL (13.0-17.5) 7.3 g/dL (13.0-17.5) 7.5 g/dL (13.0-17.5) 6.2 g/dL (13.0-17.5) Hematocrit 23.5 % (39.0-53.0) Mean Corpuscular Hemoglobin Concent 34 g/dL (31-37) Test 12/12/18 05:22 White Blood Count 7.2 x10^3/uL (4.0-11.0) Red Blood Count 2.69 x10^6/uL (4.30-5.70) Hemoglobin 8.0 g/dL (13.0-17.5) Hematocrit 23.7 % (39.0-53.0) Mean Corpuscular Volume 88 fL (79-100) Mean Corpuscular Hemoglobin 30 pg (25-35) Mean Corpuscular Hemoglobin Concent 34 g/dL (31-37) Red Cell Distribution Width 15.5 % (11.5-14.5) Platelet Count 135 x10^3/uL (140-400) Neutrophils (%) (Auto) 67 % (31-73) Lymphocytes (%) (Auto) 9 % (24-48) Monocytes (%) (Auto) 19 % (0-9) Eosinophils (%) (Auto) 4 % (0-3) Basophils (%) (Auto) 1 % (0-3) Neutrophils # (Auto) 4.8 x10^3uL (1.8-7.7) Lymphocytes # (Auto) 0.6 x10^3/uL (1.0-4.8) Monocytes # (Auto) 1.4 x10^3/uL (0.0-1.1) Eosinophils # (Auto) 0.3 x10^3/uL (0.0-0.7) Basophils # (Auto) 0.1 x10^3/uL (0.0-0.2) Sodium Level 144 mmol/L (136-145) Potassium Level 3.5 mmol/L (3.5-5.1) Chloride Level 106 mmol/L (98-107) Carbon Dioxide Level 35 mmol/L (21-32) Anion Gap 3 (6-14) Blood Urea Nitrogen 41 mg/dL (8-26) Creatinine 2.5 mg/dL (0.7-1.3) Estimated GFR (Cockcroft-Gault) 32.7 Glucose Level 109 mg/dL (70-99) Calcium Level 7.8 mg/dL (8.5-10.1) Results All relevant outside records, renal labs, imaging studies, telemetry/EKG's were reviewed. CARLOTA MURRAY MD December 12, 2018 08:43
[2018-12-12] MEDS: carBAMazepine 200 MG/10 ML ORAL.SUSP PEG SCH ×2 (09:17→21:48)
[2018-12-12] MEDS: FAMOTIDINE 20 MG/2 ML VIAL IVP SCH (09:17)
[2018-12-12] MEDS: LACOSAMIDE 200 MG TABLET PEG SCH ×2 (09:17→21:48)
[2018-12-12] MEDS: predniSONE 10 MG TABLET PEG SCH (09:17)
[2018-12-12] MEDS: SUCRALFATE 1 GM/10 ML ORAL.SUSP. PEG SCH ×2 (09:18→21:48)
[2018-12-12] MEDS: IPRATRPIUM/ALBUTEROL 0.5/2.5MG 3 ML NEBU. NEB SCH ×4 (09:27→20:20)
--- NOTE | 2018-12-12 10:09 | PDOC ---
PULMONARY PROGRESS NOTES Subjective SITTING IN CHAIR ON PS 10 NO DISTRESS Vitals Vital Signs Date Time Temp Pulse Resp B/P (MAP) Pulse Ox O2 Delivery O2 Flow Rate FiO2 12/12/18 09:27 100 Ventilator 12/12/18 06:00 73 18 119/53 (75) 12/12/18 04:00 97.3 97.3 General: Alert Lungs: Crackles Cardiovascular: S1, S2 Abdomen: Soft Neuro Exam: Alert Skin: Warm Labs Laboratory Tests Test 12/10/18 22:00 12/11/18 00:50 12/11/18 04:10 12/11/18 08:20 Hemoglobin 6.7 g/dL (13.0-17.5) 6.4 g/dL (13.0-17.5) Hematocrit 21.0 % (39.0-53.0) 18.9 % (39.0-53.0) Mean Corpuscular Hemoglobin Concent 32 g/dL (31-37) 34 g/dL (31-37) O2 Saturation 99 % (92-99) 93 % (92-99) Arterial Blood pH 7.46 (7.35-7.45) 7.51 (7.35-7.45) Arterial Blood pCO2 at Patient Temp 52 mmHg (35-46) 42 mmHg (35-46) Arterial Blood pO2 at Patient Temp 191 mmHg (75-108) 66 mmHg (75-108) Arterial Blood HCO3 36 mmol/L (21-28) 32 mmol/L (21-28) Arterial Blood Base Excess 11 mmol/L (-3-3) 9 mmol/L (-3-3) FiO2 30 30 White Blood Count 9.2 x10^3/uL (4.0-11.0) Red Blood Count 2.17 x10^6/uL (4.30-5.70) Mean Corpuscular Volume 87 fL (79-100) Mean Corpuscular Hemoglobin 29 pg (25-35) Red Cell Distribution Width 16.4 % (11.5-14.5) Platelet Count 158 x10^3/uL (140-400) Neutrophils (%) (Auto) 77 % (31-73) Lymphocytes (%) (Auto) 6 % (24-48) Monocytes (%) (Auto) 13 % (0-9) Eosinophils (%) (Auto) 3 % (0-3) Basophils (%) (Auto) 1 % (0-3) Neutrophils # (Auto) 7.1 x10^3uL (1.8-7.7) Lymphocytes # (Auto) 0.5 x10^3/uL (1.0-4.8) Monocytes # (Auto) 1.2 x10^3/uL (0.0-1.1) Eosinophils # (Auto) 0.3 x10^3/uL (0.0-0.7) Basophils # (Auto) 0.1 x10^3/uL (0.0-0.2) Prothrombin Time 17.9 SEC (11.7-14.0) Prothromb Time International Ratio 1.5 (0.8-1.1) Sodium Level 142 mmol/L (136-145) Potassium Level 3.3 mmol/L (3.5-5.1) Chloride Level 105 mmol/L (98-107) Carbon Dioxide Level 34 mmol/L (21-32) Anion Gap 3 (6-14) Blood Urea Nitrogen 39 mg/dL (8-26) Creatinine 2.3 mg/dL (0.7-1.3) Estimated GFR (Cockcroft-Gault) 36.0 BUN/Creatinine Ratio 17 (6-20) Glucose Level 103 mg/dL (70-99) Calcium Level 8.0 mg/dL (8.5-10.1) Total Bilirubin 0.5 mg/dL (0.2-1.0) Aspartate Amino Transf (AST/SGOT) 12 U/L (15-37) Alanine Aminotransferase (ALT/SGPT) 14 U/L (16-63) Alkaline Phosphatase 60 U/L (46-116) Total Protein 4.9 g/dL (6.4-8.2) Albumin 1.5 g/dL (3.4-5.0) Albumin/Globulin Ratio 0.4 (1.0-1.7) Test 12/11/18 08:31 12/11/18 10:20 12/11/18 13:55 12/11/18 18:40 Glucose (Fingerstick) 99 mg/dL (70-99) Hemoglobin 8.0 g/dL (13.0-17.5) 7.3 g/dL (13.0-17.5) 7.5 g/dL (13.0-17.5) Hematocrit 23.5 % (39.0-53.0) Mean Corpuscular Hemoglobin Concent 34 g/dL (31-37) Test 12/12/18 00:00 12/12/18 05:22 Hemoglobin 6.2 g/dL (13.0-17.5) 8.0 g/dL (13.0-17.5) White Blood Count 7.2 x10^3/uL (4.0-11.0) Red Blood Count 2.69 x10^6/uL (4.30-5.70) Hematocrit 23.7 % (39.0-53.0) Mean Corpuscular Volume 88 fL (79-100) Mean Corpuscular Hemoglobin 30 pg (25-35) Mean Corpuscular Hemoglobin Concent 34 g/dL (31-37) Red Cell Distribution Width 15.5 % (11.5-14.5) Platelet Count 135 x10^3/uL (140-400) Neutrophils (%) (Auto) 67 % (31-73) Lymphocytes (%) (Auto) 9 % (24-48) Monocytes (%) (Auto) 19 % (0-9) Eosinophils (%) (Auto) 4 % (0-3) Basophils (%) (Auto) 1 % (0-3) Neutrophils # (Auto) 4.8 x10^3uL (1.8-7.7) Lymphocytes # (Auto) 0.6 x10^3/uL (1.0-4.8) Monocytes # (Auto) 1.4 x10^3/uL (0.0-1.1) Eosinophils # (Auto) 0.3 x10^3/uL (0.0-0.7) Basophils # (Auto) 0.1 x10^3/uL (0.0-0.2) Sodium Level 144 mmol/L (136-145) Potassium Level 3.5 mmol/L (3.5-5.1) Chloride Level 106 mmol/L (98-107) Carbon Dioxide Level 35 mmol/L (21-32) Anion Gap 3 (6-14) Blood Urea Nitrogen 41 mg/dL (8-26) Creatinine 2.5 mg/dL (0.7-1.3) Estimated GFR (Cockcroft-Gault) 32.7 Glucose Level 109 mg/dL (70-99) Calcium Level 7.8 mg/dL (8.5-10.1) Laboratory Tests Test 12/11/18 10:20 12/11/18 13:55 12/11/18 18:40 12/12/18 00:00 Hemoglobin 8.0 g/dL (13.0-17.5) 7.3 g/dL (13.0-17.5) 7.5 g/dL (13.0-17.5) 6.2 g/dL (13.0-17.5) Hematocrit 23.5 % (39.0-53.0) Mean Corpuscular Hemoglobin Concent 34 g/dL (31-37) Test 12/12/18 05:22 White Blood Count 7.2 x10^3/uL (4.0-11.0) Red Blood Count 2.69 x10^6/uL (4.30-5.70) Hemoglobin 8.0 g/dL (13.0-17.5) Hematocrit 23.7 % (39.0-53.0) Mean Corpuscular Volume 88 fL (79-100) Mean Corpuscular Hemoglobin 30 pg (25-35) Mean Corpuscular Hemoglobin Concent 34 g/dL (31-37) Red Cell Distribution Width 15.5 % (11.5-14.5) Platelet Count 135 x10^3/uL (140-400) Neutrophils (%) (Auto) 67 % (31-73) Lymphocytes (%) (Auto) 9 % (24-48) Monocytes (%) (Auto) 19 % (0-9) Eosinophils (%) (Auto) 4 % (0-3) Basophils (%) (Auto) 1 % (0-3) Neutrophils # (Auto) 4.8 x10^3uL (1.8-7.7) Lymphocytes # (Auto) 0.6 x10^3/uL (1.0-4.8) Monocytes # (Auto) 1.4 x10^3/uL (0.0-1.1) Eosinophils # (Auto) 0.3 x10^3/uL (0.0-0.7) Basophils # (Auto) 0.1 x10^3/uL (0.0-0.2) Sodium Level 144 mmol/L (136-145) Potassium Level 3.5 mmol/L (3.5-5.1) Chloride Level 106 mmol/L (98-107) Carbon Dioxide Level 35 mmol/L (21-32) Anion Gap 3 (6-14) Blood Urea Nitrogen 41 mg/dL (8-26) Creatinine 2.5 mg/dL (0.7-1.3) Estimated GFR (Cockcroft-Gault) 32.7 Glucose Level 109 mg/dL (70-99) Calcium Level 7.8 mg/dL (8.5-10.1) Medications Active Scripts Medications Dose Route/Sig Max Daily Dose Days Date Category Mirtazapine 15 Mg Tablet 1 Tab PO QHS 11/13/18 Reported Hydralazine Hcl 25 Mg Tablet 3 Tab PO TID 11/13/18 Reported Zyvox (Linezolid) 600 Mg/300 Ml Iv.soln 600 Mg IV Q12HR 11/13/18 Reported Isosorbide Dinitrate 20 Mg Tablet 20 Mg PO TID 11/13/18 Reported Protonix (Pantoprazole Sodium) 20 Mg Tablet.dr 20 Mg PO DAILY 11/13/18 Reported Sodium Bicarbonate 650 Mg Tablet 2 Tab PO BID 11/13/18 Reported Humalog (Insulin Lispro) 100 Unit/1 Ml Insuln.pen 100 Unit SQ SSI PRN 11/13/18 Reported Ferrous Sulfate 325 Mg Tablet 1 Tab PO BID 11/13/18 Reported Carafate (Sucralfate) 1 Gm/10 Ml Oral.susp 10 Ml PO BID 11/13/18 Reported Atorvastatin Calcium 10 Mg Tablet 10 Mg PO HS 11/13/18 Reported Vimpat (Lacosamide) 200 Mg Tablet 200 Mg PO BID 11/13/18 Reported Levetiracetam 100 Mg/1 Ml Solution 1,500 Mg PO BID 11/13/18 Reported Coreg (Carvedilol) 25 Mg Tablet 25 Mg PO BIDWMEALS 11/13/18 Reported Tegretol (Carbamazepine) 200 Mg Tablet 300 Mg PO BID 11/13/18 Reported Metafolbic Tablet (Vit B12/Lmefolate Ca/Vit B6/B2) 1 Each Tablet 1 Each PO DAILY 11/13/18 Reported Nephro-Zhanna Tablet (Folic Acid/Vitamin B Comp W-C) 0.8 Mg Tablet 1 Tab PO DAILY 11/13/18 Reported Senna Lax (Sennosides) 8.6 Mg Tablet 8.6 Mg PO DAILY 11/13/18 Reported Docusate Sodium 100 Mg Capsule 1 Cap PO DAILY 11/13/18 Reported Escitalopram Oxalate 20 Mg Tablet 20 Mg PO DAILY 11/13/18 Reported Norvasc (Amlodipine Besylate) 10 Mg Tablet 10 Mg PO DAILY 11/13/18 Reported Reglan (Metoclopramide Hcl) 10 Mg Tablet 1 Tab PO TID 11/13/18 Reported Prednisone (Prednisone) 10 Mg Tablet 10 Mg PO DAILY 11/13/18 Reported Xanax (Alprazolam) 0.5 Mg Tablet 0.5 Mg PO PRN Q6HRS PRN 11/13/18 Reported Xanax (Alprazolam) 0.5 Mg Tablet 1 Tab PO QID 11/13/18 Reported Pyridostigmine [place] 60 Mg Tablet 60 Mg PO QID 11/13/18 Reported Impression . IMPRESSION: 1. [id number] hypoxemic respiratory failure. 2. Acute drop in hemoglobin. 3. Acute gastrointestinal bleed. 4. History of small-bowel obstruction, corrected with nonsurgical. 5. Prior history of chronic obstructive pulmonary disease, obstructive sleep apnea and pulmonary fibrosis along with secondary pulmonary hypertension, the patient had been on chronic steroid use. 6. History of myasthenia gravis, status post thymectomy. 7. Recent sepsis and aspiration pneumonia. 8. Chronic kidney disease. 9. History of seizure/traumatic brain injury. 10. Deep venous thrombosis of the right upper extremity. 11. Coronary artery disease with previous coronary artery bypass grafting. 12. Severe protein malnutrition. 13. Hematochezia. 14. Gastroesophageal reflux. Plan . PS TODAY UP TO CHAIR MONITOR HH TRANSFUSE NEEDED 1. We will continue support with assist-control ventilation at bedtime, pressure support during the day. 2. Follow GI recommendations. 3. Monitor H and H closely. 4. Interventional radiologist has been consulted. Current recommendations to be medically managed for now in order to avoid further IV contrast needed for angiography. 5. Follow Nephrology input. 6. Consult ID, already performed. 7. DVT and GI prophylaxis. 8. Nebulized treatments. 9. I do appreciate the privilege in sharing in the patient's care. GALLO RICHARD MD December 12, 2018 10:09
--- NOTE | 2018-12-12 10:31 | PDOC ---
PROGRESS NOTES Subjective Subjective alert on ventilator. lab reviewed. feels okay. Objective Objective Vital Signs Date Time Temp Pulse Resp B/P (MAP) Pulse Ox O2 Delivery O2 Flow Rate FiO2 12/12/18 09:27 100 Ventilator 12/12/18 06:00 73 18 119/53 (75) 12/12/18 04:00 97.3 97.3 Intake and Output 12/12/18 07:00 Intake Total 2419 ml Output Total 500 ml Balance 1919 ml Intake Oral 0 ml IV Total 765 ml Blood Product 674 ml Blood Product IV Normal Saline Flush 980 ml Output Urine Total 500 ml # Bowel Movements 2 Physical Exam Abdomen: Soft, Other ( gtube) Heart: Regular rate, Normal S1, Normal S2 Extremities: No edema General: Alert HEENT: Atraumatic Lungs: Other (decreased breath sounds anteriorly) Neck: Other (tracheostomy) Psych/Mental Status: Mental status NL, Mood NL Skin: No rashes Assessment Assessment 1. Lower gastrointestinal bleed from the splenic flexure of the colon. 2. Acute blood loss anemia. 3. Acute hypoxic and hypercapnic respiratory failure, on the ventilator. 4. Myasthenia gravis. 5. Tracheostomy. 6. Oropharyngeal dysphagia. 7. Chronic kidney disease stage 3. 8. Coronary artery disease. 9. Right subclavian vein thrombosis. 10. Hypertension. 11. Hyperlipidemia. 12. Seizure disorder. 13. Hypokalemia. 14. Severe protein-calorie malnutrition. Plan Plan of Care monitor for further GI bleeding monitor hgb ventilator support nurse to call me as he is involved in a code with another patient Comment Review of Relevant I have reviewed the following items nubia (where applicable) has been applied. Labs Laboratory Tests Test 12/10/18 22:00 12/11/18 00:50 12/11/18 04:10 12/11/18 08:20 Hemoglobin 6.7 g/dL (13.0-17.5) 6.4 g/dL (13.0-17.5) Hematocrit 21.0 % (39.0-53.0) 18.9 % (39.0-53.0) Mean Corpuscular Hemoglobin Concent 32 g/dL (31-37) 34 g/dL (31-37) O2 Saturation 99 % (92-99) 93 % (92-99) Arterial Blood pH 7.46 (7.35-7.45) 7.51 (7.35-7.45) Arterial Blood pCO2 at Patient Temp 52 mmHg (35-46) 42 mmHg (35-46) Arterial Blood pO2 at Patient Temp 191 mmHg (75-108) 66 mmHg (75-108) Arterial Blood HCO3 36 mmol/L (21-28) 32 mmol/L (21-28) Arterial Blood Base Excess 11 mmol/L (-3-3) 9 mmol/L (-3-3) FiO2 30 30 White Blood Count 9.2 x10^3/uL (4.0-11.0) Red Blood Count 2.17 x10^6/uL (4.30-5.70) Mean Corpuscular Volume 87 fL (79-100) Mean Corpuscular Hemoglobin 29 pg (25-35) Red Cell Distribution Width 16.4 % (11.5-14.5) Platelet Count 158 x10^3/uL (140-400) Neutrophils (%) (Auto) 77 % (31-73) Lymphocytes (%) (Auto) 6 % (24-48) Monocytes (%) (Auto) 13 % (0-9) Eosinophils (%) (Auto) 3 % (0-3) Basophils (%) (Auto) 1 % (0-3) Neutrophils # (Auto) 7.1 x10^3uL (1.8-7.7) Lymphocytes # (Auto) 0.5 x10^3/uL (1.0-4.8) Monocytes # (Auto) 1.2 x10^3/uL (0.0-1.1) Eosinophils # (Auto) 0.3 x10^3/uL (0.0-0.7) Basophils # (Auto) 0.1 x10^3/uL (0.0-0.2) Prothrombin Time 17.9 SEC (11.7-14.0) Prothromb Time International Ratio 1.5 (0.8-1.1) Sodium Level 142 mmol/L (136-145) Potassium Level 3.3 mmol/L (3.5-5.1) Chloride Level 105 mmol/L (98-107) Carbon Dioxide Level 34 mmol/L (21-32) Anion Gap 3 (6-14) Blood Urea Nitrogen 39 mg/dL (8-26) Creatinine 2.3 mg/dL (0.7-1.3) Estimated GFR (Cockcroft-Gault) 36.0 BUN/Creatinine Ratio 17 (6-20) Glucose Level 103 mg/dL (70-99) Calcium Level 8.0 mg/dL (8.5-10.1) Total Bilirubin 0.5 mg/dL (0.2-1.0) Aspartate Amino Transf (AST/SGOT) 12 U/L (15-37) Alanine Aminotransferase (ALT/SGPT) 14 U/L (16-63) Alkaline Phosphatase 60 U/L (46-116) Total Protein 4.9 g/dL (6.4-8.2) Albumin 1.5 g/dL (3.4-5.0) Albumin/Globulin Ratio 0.4 (1.0-1.7) Test 12/11/18 08:31 12/11/18 10:20 12/11/18 13:55 12/11/18 18:40 Glucose (Fingerstick) 99 mg/dL (70-99) Hemoglobin 8.0 g/dL (13.0-17.5) 7.3 g/dL (13.0-17.5) 7.5 g/dL (13.0-17.5) Hematocrit 23.5 % (39.0-53.0) Mean Corpuscular Hemoglobin Concent 34 g/dL (31-37) Test 12/12/18 00:00 12/12/18 05:22 Hemoglobin 6.2 g/dL (13.0-17.5) 8.0 g/dL (13.0-17.5) White Blood Count 7.2 x10^3/uL (4.0-11.0) Red Blood Count 2.69 x10^6/uL (4.30-5.70) Hematocrit 23.7 % (39.0-53.0) Mean Corpuscular Volume 88 fL (79-100) Mean Corpuscular Hemoglobin 30 pg (25-35) Mean Corpuscular Hemoglobin Concent 34 g/dL (31-37) Red Cell Distribution Width 15.5 % (11.5-14.5) Platelet Count 135 x10^3/uL (140-400) Neutrophils (%) (Auto) 67 % (31-73) Lymphocytes (%) (Auto) 9 % (24-48) Monocytes (%) (Auto) 19 % (0-9) Eosinophils (%) (Auto) 4 % (0-3) Basophils (%) (Auto) 1 % (0-3) Neutrophils # (Auto) 4.8 x10^3uL (1.8-7.7) Lymphocytes # (Auto) 0.6 x10^3/uL (1.0-4.8) Monocytes # (Auto) 1.4 x10^3/uL (0.0-1.1) Eosinophils # (Auto) 0.3 x10^3/uL (0.0-0.7) Basophils # (Auto) 0.1 x10^3/uL (0.0-0.2) Sodium Level 144 mmol/L (136-145) Potassium Level 3.5 mmol/L (3.5-5.1) Chloride Level 106 mmol/L (98-107) Carbon Dioxide Level 35 mmol/L (21-32) Anion Gap 3 (6-14) Blood Urea Nitrogen 41 mg/dL (8-26) Creatinine 2.5 mg/dL (0.7-1.3) Estimated GFR (Cockcroft-Gault) 32.7 Glucose Level 109 mg/dL (70-99) Calcium Level 7.8 mg/dL (8.5-10.1) Laboratory Tests Test 12/11/18 13:55 12/11/18 18:40 12/12/18 00:00 12/12/18 05:22 Hemoglobin 7.3 g/dL (13.0-17.5) 7.5 g/dL (13.0-17.5) 6.2 g/dL (13.0-17.5) 8.0 g/dL (13.0-17.5) White Blood Count 7.2 x10^3/uL (4.0-11.0) Red Blood Count 2.69 x10^6/uL (4.30-5.70) Hematocrit 23.7 % (39.0-53.0) Mean Corpuscular Volume 88 fL (79-100) Mean Corpuscular Hemoglobin 30 pg (25-35) Mean Corpuscular Hemoglobin Concent 34 g/dL (31-37) Red Cell Distribution Width 15.5 % (11.5-14.5) Platelet Count 135 x10^3/uL (140-400) Neutrophils (%) (Auto) 67 % (31-73) Lymphocytes (%) (Auto) 9 % (24-48) Monocytes (%) (Auto) 19 % (0-9) Eosinophils (%) (Auto) 4 % (0-3) Basophils (%) (Auto) 1 % (0-3) Neutrophils # (Auto) 4.8 x10^3uL (1.8-7.7) Lymphocytes # (Auto) 0.6 x10^3/uL (1.0-4.8) Monocytes # (Auto) 1.4 x10^3/uL (0.0-1.1) Eosinophils # (Auto) 0.3 x10^3/uL (0.0-0.7) Basophils # (Auto) 0.1 x10^3/uL (0.0-0.2) Sodium Level 144 mmol/L (136-145) Potassium Level 3.5 mmol/L (3.5-5.1) Chloride Level 106 mmol/L (98-107) Carbon Dioxide Level 35 mmol/L (21-32) Anion Gap 3 (6-14) Blood Urea Nitrogen 41 mg/dL (8-26) Creatinine 2.5 mg/dL (0.7-1.3) Estimated GFR (Cockcroft-Gault) 32.7 Glucose Level 109 mg/dL (70-99) Calcium Level 7.8 mg/dL (8.5-10.1) Medications Current Medications Alprazolam (Xanax) 0.5 mg PRN Q6HRS PRN PO ANXIETY / AGITATION Last administered on 12/11/18at 20:37; Start 12/10/18 at 22:00 Pyridostigmine [place] (Mestinon) 60 mg QID PO Last administered on 12/10/18at 23:42; Start 12/10/18 at 22:30; Stop 12/11/18 at 10:20; Status DC Dextrose/Sodium Chloride 1,000 ml @ 75 mls/hr [id number] IV Last administered on 12/12/18at 02:11; Start 12/10/18 at 23:15 Famotidine (Pepcid Vial) 20 mg BID IVP Last administered on 12/12/18at 09:17; Start 12/11/18 at 11:00 Albuterol/ Ipratropium (Duoneb) 3 ml RTQID NEB Last administered on 12/12/18 09:27; Start 12/11/18 at 12:00 Pantoprazole Sodium (Protonix) 40 mg DAILYAC PO ; Start 12/12/18 at 07:30; Stop 12/12/18 at 07:30; Status DC Acetaminophen (Tylenol) 650 mg PRN Q6HRS PRN PEG MILD PAIN / TEMP; Start 12/11/18 at 10:15 Sucralfate (Carafate) 1 gm BID PEG Last administered on 12/12/18 09:18; Start 12/11/18 at 11:00 Atorvastatin Calcium (Lipitor) 10 mg QHS PEG Last administered on 12/11/18 20:37; Start 12/11/18 at 21:00 Levetiracetam 1000 mg/Dextrose 110 ml @ 440 mls/hr Q12HR IV ; Start 12/11/18 at 11:00; Stop 12/11/18 at 11:00; Status DC Pyridostigmine [place] (Mestinon) 60 mg Q6HRS PEG Last administered on 12/12/18 06:08; Start 12/11/18 at 12:00 Prednisone (Prednisone) 10 mg DAILY PEG Last administered on 12/12/18 09:17; Start 12/11/18 at 11:00 Potassium Chloride (KCl Oral Soln) 20 meq 1X ONCE PEG Last administered on 12/11/18 11:20; Start 12/11/18 at 10:30; Stop 12/11/18 at 10:31; Status DC Lansoprazole (Prevacid) 30 mg DAILYAC PEG Last administered on 12/12/18 07:30; Start 12/11/18 at 11:30 Lacosamide (Vimpat) 200 mg BID PEG Last administered on 12/12/18 09:17; Start 12/11/18 at 11:00 Carbamazepine (TEGretol) 300 mg BID PEG Last administered on 12/12/18 09:17; Start 12/11/18 at 11:00 Levetiracetam (Keppra) 1,500 mg BID PEG Last administered on 12/11/18 20:37; Start 12/11/18 at 11:00 Acetylcysteine (Mucomyst 20% Resp Treatment) 600 mg Q6HRS NEB ; Start 12/11/18 at 12:00; Status Cancel Active Scripts Active Reported Mirtazapine 15 Mg Tablet 1 Tab PO QHS Hydralazine Hcl 25 Mg Tablet 3 Tab PO TID Zyvox (Linezolid) 600 Mg/300 Ml Iv.soln 600 Mg IV Q12HR Isosorbide Dinitrate 20 Mg Tablet 20 Mg PO TID Protonix (Pantoprazole Sodium) 20 Mg Tablet.dr 20 Mg PO DAILY Sodium Bicarbonate 650 Mg Tablet 2 Tab PO BID Humalog (Insulin Lispro) 100 Unit/1 Ml Insuln.pen 100 Unit SQ SSI PRN Ferrous Sulfate 325 Mg Tablet 1 Tab PO BID Carafate (Sucralfate) 1 Gm/10 Ml Oral.susp 10 Ml PO BID Atorvastatin Calcium 10 Mg Tablet 10 Mg PO HS Vimpat (Lacosamide) 200 Mg Tablet 200 Mg PO BID Levetiracetam 100 Mg/1 Ml Solution 1,500 Mg PO BID Coreg (Carvedilol) 25 Mg Tablet 25 Mg PO BIDWMEALS Tegretol (Carbamazepine) 200 Mg Tablet 300 Mg PO BID Metafolbic Tablet (Vit B12/Lmefolate Ca/Vit B6/B2) 1 Each Tablet 1 Each PO DAILY Nephro-Zhanna Tablet (Folic Acid/Vitamin B Comp W-C) 0.8 Mg Tablet 1 Tab PO DAILY Senna Lax (Sennosides) 8.6 Mg Tablet 8.6 Mg PO DAILY Docusate Sodium 100 Mg Capsule 1 Cap PO DAILY Escitalopram Oxalate 20 Mg Tablet 20 Mg PO DAILY Norvasc (Amlodipine Besylate) 10 Mg Tablet 10 Mg PO DAILY Reglan (Metoclopramide Hcl) 10 Mg Tablet 1 Tab PO TID Prednisone (Prednisone) 10 Mg Tablet 10 Mg PO DAILY Xanax (Alprazolam) 0.5 Mg Tablet 0.5 Mg PO PRN Q6HRS PRN Xanax (Alprazolam) 0.5 Mg Tablet 1 Tab PO QID Pyridostigmine [place] 60 Mg Tablet 60 Mg PO QID Vitals/I & O Vital Sign - Last 24 Hours 12/11/18 12/11/18 12/11/18 12/11/18 11:00 11:55 12:00 12:00 Pulse 75 75 Resp 18 18 B/P (MAP) 142/72 (95) 150/76 (100) Pulse Ox 100 100 100 O2 Delivery Ventilator Ventilator Ventilator Mechanical Ventilator 12/11/18 12/11/18 12/11/18 12/11/18 13:00 13:35 15:43 16:00 Pulse 75 Resp 18 B/P (MAP) 131/69 (89) Pulse Ox 100 100 99 O2 Delivery Ventilator Ventilator Ventilator Mechanical Ventilator 12/11/18 12/11/18 12/11/18 12/11/18 17:44 18:32 19:00 19:57 Pulse 70 81 Resp 18 23 B/P (MAP) 140/70 (93) 142/88 (106) Pulse Ox 99 100 100 96 O2 Delivery Ventilator Ventilator Ventilator Ventilator 12/11/18 12/11/18 12/11/18 12/11/18 20:00 20:00 21:00 22:00 Temp 97.9 97.9 Pulse 86 90 76 Resp 31 25 19 B/P (MAP) 157/80 (105) 147/96 (113) 125/66 (85) Pulse Ox 98 99 100 O2 Delivery Mechanical Ventilator Ventilator Ventilator Ventilator 12/11/18 12/11/18 12/11/18 12/12/18 23:00 23:54 23:59 00:00 Temp 97.8 97.8 Pulse 73 73 Resp 18 18 B/P (MAP) 94/70 (78) 99/55 (70) Pulse Ox 100 100 100 O2 Delivery Ventilator Ventilator Mechanical Ventilator Ventilator 12/12/18 12/12/18 12/12/18 12/12/18 00:35 00:50 01:00 01:37 Temp 97.8 97.3 97.8 97.3 Pulse 78 69 69 Resp 21 17 17 B/P (MAP) 99/55 107/49 103/51 (68) Pulse Ox 100 100 O2 Delivery Ventilator Ventilator 12/12/18 12/12/18 12/12/18 12/12/18 02:00 02:00 02:15 03:00 Temp 97.5 97.5 97.5 97.5 Pulse 68 66 64 67 Resp 16 15 16 18 B/P (MAP) 120/47 (71) 120/47 114/54 101/49 (66) Pulse Ox 100 100 O2 Delivery Ventilator Ventilator 5/23/19 12/12/18 12/12/18 12/12/18 03:42 04:00 04:00 05:00 Temp 97.3 97.3 Pulse 62 62 Resp 22 15 B/P (MAP) 105/61 (76) 129/60 (83) Pulse Ox 100 100 100 O2 Delivery Ventilator Ventilator Mechanical Ventilator Ventilator 12/12/18 12/12/18 12/12/18 05:38 06:00 09:27 Pulse 73 Resp 18 B/P (MAP) 119/53 (75) Pulse Ox 100 100 100 O2 Delivery Ventilator Ventilator Ventilator Intake and Output 12/11/18 12/11/18 12/12/18 15:00 23:00 07:00 Intake Total 350 ml 0 ml 2069 ml Output Total 250 ml 250 ml Balance 100 ml -250 ml 2069 ml RYLEY CLARK MD December 12, 2018 10:31
--- NOTE | 2018-12-12 11:20 | PDOC ---
Subjective: Subjective: Denies bleeding and pain. Objective: Objective: Reviewed w/ RN - a little bleeding after I saw yesterday morning, but none since. Vital Signs: Vital Signs Date Time Temp Pulse Resp B/P (MAP) Pulse Ox O2 Delivery O2 Flow Rate FiO2 12/12/18 11:00 62 18 119/76 (90) 100 Ventilator 12/12/18 04:00 97.3 97.3 Labs: Laboratory Tests Test 12/11/18 13:55 12/11/18 18:40 12/12/18 00:00 12/12/18 05:22 Hemoglobin 7.3 g/dL 7.5 g/dL 6.2 g/dL 8.0 g/dL White Blood Count 7.2 x10^3/uL Red Blood Count 2.69 x10^6/uL Hematocrit 23.7 % Mean Corpuscular Volume 88 fL Mean Corpuscular Hemoglobin 30 pg Mean Corpuscular Hemoglobin Concent 34 g/dL Red Cell Distribution Width 15.5 % Platelet Count 135 x10^3/uL Neutrophils (%) (Auto) 67 % Lymphocytes (%) (Auto) 9 % Monocytes (%) (Auto) 19 % Eosinophils (%) (Auto) 4 % Basophils (%) (Auto) 1 % Neutrophils # (Auto) 4.8 x10^3uL Lymphocytes # (Auto) 0.6 x10^3/uL Monocytes # (Auto) 1.4 x10^3/uL Eosinophils # (Auto) 0.3 x10^3/uL Basophils # (Auto) 0.1 x10^3/uL Sodium Level 144 mmol/L Potassium Level 3.5 mmol/L Chloride Level 106 mmol/L Carbon Dioxide Level 35 mmol/L Anion Gap 3 Blood Urea Nitrogen 41 mg/dL Creatinine 2.5 mg/dL Estimated GFR (Cockcroft-Gault) 32.7 Glucose Level 109 mg/dL Calcium Level 7.8 mg/dL PE: GEN: NAD HEENT: keeps eyes closed LUNGS: trach/vent HEART: RRR ABD: NABS, S/ND/NT NEURO/PSYCH: A & O 3 A/P: Hematochezia, anemia, +bleeding scan - has transfused 6 units total CKD H/o "upper GI bleed" - ?erosions from NG tube on EGD at [facility] in 10/2018 -- Bleeding stopped? Continue same per GI for now. Looks like getting meds per PEG - will change from IV H2 francesca to PPI per PEG. ZANE BEE December 12, 2018 11:20
--- NOTE | 2018-12-12 11:24 | NUR ---
Functional screen complete. RN reports pt would benefit from PT/OT services to address functional limitations. Please wrtie PT/OT eval and treat orders if you agree. Addendum: 12/12/18 at 1124 by CLAUDY LACEY PT Amended: Links added.
[2018-12-12 13:32] LABS: PROTHROMBIN TIME PATIENT 17.2 SEC (11.7-14.0)
[2018-12-12] MEDS: ALPRAZolam 0.5 MG TABLET PO PRN ×2 (18:21→21:47)
[2018-12-12] MEDS: ATORVASTATIN CALCIUM 10 MG TABLET. PEG SCH (21:48)
[2018-12-13] VITALS (13 sets, daily range): BP systolic 133–185; BP diastolic 58–79
[2018-12-13] MEDS: PYRIDOSTIGMINE BROMIDE 60 MG TABLET PEG SCH ×2 (00:34→05:44)
[2018-12-13 05:26] LABS: BASO # 0.1 x10^3/uL (0.0-0.2); BASO % 1 % (0-3); EOS # 0.2 x10^3/uL (0.0-0.7); EOS % 3 % (0-3); HEMATOCRIT 22.7 % (39.0-53.0); HEMOGLOBIN 7.7 g/dL (13.0-17.5); LYMPH # 0.5 x10^3/uL (1.0-4.8); LYMPH % 7 % (24-48); MEAN CORPUSCULAR HEMOGLOBIN 30 pg (25-35); MEAN CORPUSCULAR HGB CONC 34 g/dL (31-37); MEAN CORPUSCULAR VOLUME 88 fL (79-100); MONO % 16 % (0-9); NEUT # 4.7 x10^3uL (1.8-7.7); NEUT % 73 % (31-73); PLATELET COUNT 149 x10^3/uL (140-400); RED BLOOD COUNT 2.57 x10^6/uL (4.30-5.70); RED CELL DISTRIBUTION WIDTH 15.7 % (11.5-14.5); WHITE BLOOD COUNT 6.5 x10^3/uL (4.0-11.0)
--- NOTE | 2018-12-13 05:40 | PDOC ---
Infectious Disease Note Subjective Subjective awake, on vent ROS ROS up in chair, no n/v/d/fever Vital Sign Vital Signs Vital Signs Date Time Temp Pulse Resp B/P (MAP) Pulse Ox O2 Delivery O2 Flow Rate FiO2 12/13/18 05:00 66 16 144/58 (86) 100 Ventilator 12/13/18 04:00 97.3 97.3 Physical Exam PHYSICAL EXAM GENERAL: Alert, oriented gentleman, not in distress. VITAL SIGNS: Stable, afebrile. HEENT: NAD. NECK: Supple, no JVP, no lymphadenopathy. LUNGS: Decreased breath sounds. HEART: S1, S2 regular. No gallop or murmur. ABDOMEN: Soft, nontender, no organomegaly. EXTREMITIES: Significant edema of the upper extremity, more so on the right than left. Lower extremities are unremarkable. NEUROLOGIC: The patient is alert, awake, and appropriate, follows command, but unable to move much of extremities. Labs Lab Laboratory Tests Test 12/12/18 13:00 12/12/18 18:20 12/13/18 00:20 Hemoglobin 9.1 g/dL (13.0-17.5) 8.7 g/dL (13.0-17.5) 7.5 g/dL (13.0-17.5) Prothrombin Time 17.2 SEC (11.7-14.0) Prothromb Time International Ratio 1.4 (0.8-1.1) Objective Assessment 1. Methicillin-resistant Staphylococcus aureus pneumonia, which has been treated. 2. Respiratory failure. 3. Gastrointestinal bleed. 4. Myasthenia gravis. Plan Plan of Care cont supportive care no antibiotics for now RENEE CARRILLO MD December 13, 2018 05:40
[2018-12-13 05:41] LABS: CALCIUM 7.9 mg/dL (8.5-10.1); CREATININE 2.3 mg/dL (0.7-1.3); POTASSIUM 3.2 mmol/L (3.5-5.1)
[2018-12-13] MEDS: IV DEXTROSE 5 %-0.45 % NACL 1,000 ML IV SCH (05:45)
--- NOTE | 2018-12-13 07:36 | RAD ---
Single view of the chest. 12/13/2018 9:00 AM Indication: Ventilatory support. Comparison: Chest radiograph, yesterday Findings: Tracheostomy tube similar in position. No pneumothorax. Probable trace bilateral pleural effusions are similar. Left-sided volume loss and mediastinal shift is similar in configuration. Prior median sternotomy again noted. Heart and interstitial opacities throughout the right lung are unchanged. No acute bony changes are noted. IMPRESSION: 1. Grossly stable support lines/tubes. 2. Stable radiographic appearance of the chest 3. Probable small bilateral pleural effusions with mild interstitial edema/infiltrate 4. Left-sided volume loss with mediastinal shift, similar to prior exam Electronically signed by: Alvino Nixon MD (12/13/2018 7:33 AM) [id number]
[2018-12-13] MEDS: predniSONE 10 MG TABLET PEG SCH (08:31)
[2018-12-13] MEDS: LACOSAMIDE 200 MG TABLET PEG SCH (08:31)
[2018-12-13] MEDS: ALPRAZolam 0.5 MG TABLET PO PRN (08:31)
[2018-12-13] MEDS: carBAMazepine 200 MG/10 ML ORAL.SUSP PEG SCH (08:31)
[2018-12-13] MEDS: SUCRALFATE 1 GM/10 ML ORAL.SUSP. PEG SCH (08:31)
[2018-12-13] MEDS: LANSOPRAZOLE 30 MG TAB.RAP.DR PEG SCH (08:31)
--- NOTE | 2018-12-13 08:55 | NUR ---
IP: Pt is mrsa screen + requiring contact precautions.
[2018-12-13] MEDS ORDERED: LANSOPRAZOLE 30 MG TAB.RAP.DR FT SCH (09:00)
--- NOTE | 2018-12-13 09:15 | PDOC ---
SUBJECTIVE ROS Stable,sitting up in chair States didnt sleep at all last night OBJECTIVE Vital Signs Vital Signs Date Time Temp Pulse Resp B/P (MAP) Pulse Ox O2 Delivery O2 Flow Rate FiO2 12/13/18 06:13 100 Ventilator 12/13/18 06:00 64 16 143/77 (99) 12/13/18 04:00 97.3 97.3 I & 0 Intake and Output 12/13/18 06:59 Intake Total 1014 ml Output Total 550 ml Balance 464 ml Intake Oral 0 ml IV Total 1014 ml Output Urine Total 550 ml # Voids 1 # Bowel Movements 4 PHYSICAL EXAM Physical Exam GEN: NAD HEENT: tracheostomy NECK: Supple LUNGS CTA ant , Non labored HEART: RRR ABD: PEG + EXTREMITY: No edema SKIN: No rashes, no jaundice NEURO : A & O 3 - No Ghosh DIAGNOSIS/ASSESSMENT Assessment & Plan PRIYA- on ckd Suspect Due to GI bleed , Cr peaked at 2.7 , stable at 2.3 Strict I/O E-Lytes and acid base stable, 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 Oropharyngeal dysphagia- has PEG tube Coronary artery disease. Right subclavian vein thrombosis. Hypertension- Labile Dw RN COMMENT/RELEVANT DATA Meds Current Medications Medications (Trade) Dose Ordered Sig/John Start Time Stop Time Status Last Admin Dose Admin Acetaminophen (Tylenol) 650 mg PRN Q6HRS PRN 12/11/18 10:15 Acetylcysteine (Mucomyst 20% Resp Treatment) 600 mg Q6HRS 12/11/18 12:00 Cancel Albuterol/ Ipratropium (Duoneb) 3 ml RTQID 12/11/18 12:00 12/12/18 20:20 3 ML Alprazolam (Xanax) 0.5 mg PRN Q6HRS PRN 12/10/18 22:00 12/13/18 08:31 0.5 MG Atorvastatin Calcium (Lipitor) 10 mg QHS 12/11/18 21:00 12/12/18 21:48 10 MG Carbamazepine (TEGretol) 300 mg BID 12/11/18 11:00 12/13/18 08:31 300 MG Dextrose/Sodium Chloride 1,000 ml @ 75 mls/hr [id number] 12/10/18 23:15 12/13/18 05:45 75 MLS/HR Famotidine (Pepcid Vial) 20 mg BID 12/11/18 11:00 12/12/18 11:20 DC 12/12/18 09:17 20 MG Lacosamide (Vimpat) 200 mg BID 12/11/18 11:00 12/13/18 08:31 200 MG Lansoprazole (Prevacid) 30 mg DAILY 12/13/18 09:00 UNV Levetiracetam (Keppra) 1,500 mg BID 12/11/18 11:00 12/13/18 08:31 1,500 MG Levetiracetam 1000 mg/Dextrose 110 ml @ 440 mls/hr Q12HR 12/11/18 11:00 12/11/18 11:00 DC Pantoprazole Sodium (Protonix) 40 mg DAILYAC 12/12/18 07:30 12/12/18 07:30 DC Potassium Chloride (KCl Oral Soln) 20 meq 1X ONCE 12/11/18 10:30 12/11/18 10:31 DC 12/11/18 11:20 20 MEQ Prednisone (Prednisone) 10 mg DAILY 12/11/18 11:00 12/13/18 08:31 10 MG Pyridostigmine [place] (Mestinon) 60 mg Q6HRS 12/11/18 12:00 12/13/18 05:44 60 MG Sucralfate (Carafate) 1 gm BID 12/11/18 11:00 12/13/18 08:31 1 GM Lab Laboratory Tests Test 12/12/18 13:00 12/12/18 18:20 12/13/18 00:20 12/13/18 05:00 Hemoglobin 9.1 g/dL (13.0-17.5) 8.7 g/dL (13.0-17.5) 7.5 g/dL (13.0-17.5) 7.7 g/dL (13.0-17.5) Prothrombin Time 17.2 SEC (11.7-14.0) Prothromb Time International Ratio 1.4 (0.8-1.1) White Blood Count 6.5 x10^3/uL (4.0-11.0) Red Blood Count 2.57 x10^6/uL (4.30-5.70) Hematocrit 22.7 % (39.0-53.0) Mean Corpuscular Volume 88 fL (79-100) Mean Corpuscular Hemoglobin 30 pg (25-35) Mean Corpuscular Hemoglobin Concent 34 g/dL (31-37) Red Cell Distribution Width 15.7 % (11.5-14.5) Platelet Count 149 x10^3/uL (140-400) Neutrophils (%) (Auto) 73 % (31-73) Lymphocytes (%) (Auto) 7 % (24-48) Monocytes (%) (Auto) 16 % (0-9) Eosinophils (%) (Auto) 3 % (0-3) Basophils (%) (Auto) 1 % (0-3) Neutrophils # (Auto) 4.7 x10^3uL (1.8-7.7) Lymphocytes # (Auto) 0.5 x10^3/uL (1.0-4.8) Monocytes # (Auto) 1.0 x10^3/uL (0.0-1.1) Eosinophils # (Auto) 0.2 x10^3/uL (0.0-0.7) Basophils # (Auto) 0.1 x10^3/uL (0.0-0.2) Sodium Level 143 mmol/L (136-145) Potassium Level 3.2 mmol/L (3.5-5.1) Chloride Level 105 mmol/L (98-107) Carbon Dioxide Level 32 mmol/L (21-32) Anion Gap 6 (6-14) Blood Urea Nitrogen 32 mg/dL (8-26) Creatinine 2.3 mg/dL (0.7-1.3) Estimated GFR (Cockcroft-Gault) 36.0 Glucose Level 102 mg/dL (70-99) Calcium Level 7.9 mg/dL (8.5-10.1) Results All relevant outside records, renal labs, imaging studies, telemetry/EKG's were reviewed. Other CxR-- 1. Grossly stable support lines/tubes. 2. Stable radiographic appearance of the chest 3. Probable small bilateral pleural effusions with mild interstitial edema/infiltrate 4. Left-sided volume loss with mediastinal shift, similar to prior exam CARLOTA MURRAY MD December 13, 2018 09:15
[2018-12-13] MEDS: IPRATRPIUM/ALBUTEROL 0.5/2.5MG 3 ML NEBU. NEB SCH ×2 (09:23→11:49)
--- NOTE | 2018-12-13 09:35 | PDOC ---
PROGRESS NOTES Subjective Subjective up in chair on ventilator alert and comfortable. no further GI bleeding since a small amount at 4 PM yesterday. discussed with his nurse. hgb stable. Objective Objective Vital Signs Date Time Temp Pulse Resp B/P (MAP) Pulse Ox O2 Delivery O2 Flow Rate FiO2 12/13/18 06:13 100 Ventilator 12/13/18 06:00 64 16 143/77 (99) 12/13/18 04:00 97.3 97.3 Intake and Output 12/13/18 07:00 Intake Total 1014 ml Output Total 450 ml Balance 564 ml Intake Oral 0 ml IV Total 1014 ml Output Urine Total 450 ml # Voids 1 # Bowel Movements 3 Physical Exam Abdomen: Soft Heart: Regular rate, Normal S1, Normal S2 Extremities: Other (2 plus edema legs) General: Alert HEENT: Atraumatic, Other (tracheostomy on ventilator) Lungs: Other (tubular breath sounds left base) Neuro: Other (alert) Psych/Mental Status: Mood NL Skin: No rashes Assessment Assessment 1. Lower gastrointestinal bleed from the splenic flexure of the colon. GI bleeding has stopped 2. Acute blood loss anemia. hgb stable 3. Acute hypoxic and hypercapnic respiratory failure, on the ventilator. 4. Myasthenia gravis. 5. Tracheostomy. 6. Oropharyngeal dysphagia. 7. Chronic kidney disease stage 3. 8. Coronary artery disease. 9. Right subclavian vein thrombosis. 10. Hypertension. 11. Hyperlipidemia. 12. Seizure disorder. 13. Hypokalemia. 14. Severe protein-calorie malnutrition. Plan Plan of Care replete kcl start tube feeding d/c iv fluids [facility] if okay with GI doctor Comment Review of Relevant I have reviewed the following items nubia (where applicable) has been applied. Labs Laboratory Tests Test 12/11/18 10:20 12/11/18 13:55 12/11/18 18:40 12/12/18 00:00 Hemoglobin 8.0 g/dL (13.0-17.5) 7.3 g/dL (13.0-17.5) 7.5 g/dL (13.0-17.5) 6.2 g/dL (13.0-17.5) Hematocrit 23.5 % (39.0-53.0) Mean Corpuscular Hemoglobin Concent 34 g/dL (31-37) Test 12/12/18 05:22 12/12/18 13:00 12/12/18 18:20 12/13/18 00:20 White Blood Count 7.2 x10^3/uL (4.0-11.0) Red Blood Count 2.69 x10^6/uL (4.30-5.70) Hemoglobin 8.0 g/dL (13.0-17.5) 9.1 g/dL (13.0-17.5) 8.7 g/dL (13.0-17.5) 7.5 g/dL (13.0-17.5) Hematocrit 23.7 % (39.0-53.0) Mean Corpuscular Volume 88 fL (79-100) Mean Corpuscular Hemoglobin 30 pg (25-35) Mean Corpuscular Hemoglobin Concent 34 g/dL (31-37) Red Cell Distribution Width 15.5 % (11.5-14.5) Platelet Count 135 x10^3/uL (140-400) Neutrophils (%) (Auto) 67 % (31-73) Lymphocytes (%) (Auto) 9 % (24-48) Monocytes (%) (Auto) 19 % (0-9) Eosinophils (%) (Auto) 4 % (0-3) Basophils (%) (Auto) 1 % (0-3) Neutrophils # (Auto) 4.8 x10^3uL (1.8-7.7) Lymphocytes # (Auto) 0.6 x10^3/uL (1.0-4.8) Monocytes # (Auto) 1.4 x10^3/uL (0.0-1.1) Eosinophils # (Auto) 0.3 x10^3/uL (0.0-0.7) Basophils # (Auto) 0.1 x10^3/uL (0.0-0.2) Sodium Level 144 mmol/L (136-145) Potassium Level 3.5 mmol/L (3.5-5.1) Chloride Level 106 mmol/L (98-107) Carbon Dioxide Level 35 mmol/L (21-32) Anion Gap 3 (6-14) Blood Urea Nitrogen 41 mg/dL (8-26) Creatinine 2.5 mg/dL (0.7-1.3) Estimated GFR (Cockcroft-Gault) 32.7 Glucose Level 109 mg/dL (70-99) Calcium Level 7.8 mg/dL (8.5-10.1) Prothrombin Time 17.2 SEC (11.7-14.0) Prothromb Time International Ratio 1.4 (0.8-1.1) Test 12/13/18 05:00 White Blood Count 6.5 x10^3/uL (4.0-11.0) Red Blood Count 2.57 x10^6/uL (4.30-5.70) Hemoglobin 7.7 g/dL (13.0-17.5) Hematocrit 22.7 % (39.0-53.0) Mean Corpuscular Volume 88 fL (79-100) Mean Corpuscular Hemoglobin 30 pg (25-35) Mean Corpuscular Hemoglobin Concent 34 g/dL (31-37) Red Cell Distribution Width 15.7 % (11.5-14.5) Platelet Count 149 x10^3/uL (140-400) Neutrophils (%) (Auto) 73 % (31-73) Lymphocytes (%) (Auto) 7 % (24-48) Monocytes (%) (Auto) 16 % (0-9) Eosinophils (%) (Auto) 3 % (0-3) Basophils (%) (Auto) 1 % (0-3) Neutrophils # (Auto) 4.7 x10^3uL (1.8-7.7) Lymphocytes # (Auto) 0.5 x10^3/uL (1.0-4.8) Monocytes # (Auto) 1.0 x10^3/uL (0.0-1.1) Eosinophils # (Auto) 0.2 x10^3/uL (0.0-0.7) Basophils # (Auto) 0.1 x10^3/uL (0.0-0.2) Sodium Level 143 mmol/L (136-145) Potassium Level 3.2 mmol/L (3.5-5.1) Chloride Level 105 mmol/L (98-107) Carbon Dioxide Level 32 mmol/L (21-32) Anion Gap 6 (6-14) Blood Urea Nitrogen 32 mg/dL (8-26) Creatinine 2.3 mg/dL (0.7-1.3) Estimated GFR (Cockcroft-Gault) 36.0 Glucose Level 102 mg/dL (70-99) Calcium Level 7.9 mg/dL (8.5-10.1) Laboratory Tests Test 12/12/18 13:00 12/12/18 18:20 12/13/18 00:20 12/13/18 05:00 Hemoglobin 9.1 g/dL (13.0-17.5) 8.7 g/dL (13.0-17.5) 7.5 g/dL (13.0-17.5) 7.7 g/dL (13.0-17.5) Prothrombin Time 17.2 SEC (11.7-14.0) Prothromb Time International Ratio 1.4 (0.8-1.1) White Blood Count 6.5 x10^3/uL (4.0-11.0) Red Blood Count 2.57 x10^6/uL (4.30-5.70) Hematocrit 22.7 % (39.0-53.0) Mean Corpuscular Volume 88 fL (79-100) Mean Corpuscular Hemoglobin 30 pg (25-35) Mean Corpuscular Hemoglobin Concent 34 g/dL (31-37) Red Cell Distribution Width 15.7 % (11.5-14.5) Platelet Count 149 x10^3/uL (140-400) Neutrophils (%) (Auto) 73 % (31-73) Lymphocytes (%) (Auto) 7 % (24-48) Monocytes (%) (Auto) 16 % (0-9) Eosinophils (%) (Auto) 3 % (0-3) Basophils (%) (Auto) 1 % (0-3) Neutrophils # (Auto) 4.7 x10^3uL (1.8-7.7) Lymphocytes # (Auto) 0.5 x10^3/uL (1.0-4.8) Monocytes # (Auto) 1.0 x10^3/uL (0.0-1.1) Eosinophils # (Auto) 0.2 x10^3/uL (0.0-0.7) Basophils # (Auto) 0.1 x10^3/uL (0.0-0.2) Sodium Level 143 mmol/L (136-145) Potassium Level 3.2 mmol/L (3.5-5.1) Chloride Level 105 mmol/L (98-107) Carbon Dioxide Level 32 mmol/L (21-32) Anion Gap 6 (6-14) Blood Urea Nitrogen 32 mg/dL (8-26) Creatinine 2.3 mg/dL (0.7-1.3) Estimated GFR (Cockcroft-Gault) 36.0 Glucose Level 102 mg/dL (70-99) Calcium Level 7.9 mg/dL (8.5-10.1) Medications Current Medications Alprazolam (Xanax) 0.5 mg PRN Q6HRS PRN PO ANXIETY / AGITATION Last administered on 12/13/18 08:31; Start 12/10/18 at 22:00 Pyridostigmine Bodfish (Mestinon) 60 mg QID PO Last administered on 12/10/18at 23:42; Start 12/10/18 at 22:30; Stop 12/11/18 at 10:20; Status DC Dextrose/Sodium Chloride 1,000 ml @ 75 mls/hr [id number] IV Last administered on 12/13/18 05:45; Start 12/10/18 at 23:15 Famotidine (Pepcid Vial) 20 mg BID IVP Last administered on 12/12/18 09:17; Start 12/11/18 at 11:00; Stop 12/12/18 at 11:20; Status DC Albuterol/ Ipratropium (Duoneb) 3 ml RTQID NEB Last administered on 12/13/18 09:23; Start 12/11/18 at 12:00 Pantoprazole Sodium (Protonix) 40 mg DAILYAC PO ; Start 12/12/18 at 07:30; Stop 12/12/18 at 07:30; Status DC Acetaminophen (Tylenol) 650 mg PRN Q6HRS PRN PEG MILD PAIN / TEMP; Start 12/11/18 at 10:15 Sucralfate (Carafate) 1 gm BID PEG Last administered on 12/13/18 08:31; Start 12/11/18 at 11:00 Atorvastatin Calcium (Lipitor) 10 mg QHS PEG Last administered on 12/12/18at 21:48; Start 12/11/18 at 21:00 Levetiracetam 1000 mg/Dextrose 110 ml @ 440 mls/hr Q12HR IV ; Start 12/11/18 at 11:00; Stop 12/11/18 at 11:00; Status DC Pyridostigmine Bodfish (Mestinon) 60 mg Q6HRS PEG Last administered on 12/13/18 05:44; Start 12/11/18 at 12:00 Prednisone (Prednisone) 10 mg DAILY PEG Last administered on 12/13/18 08:31; Start 12/11/18 at 11:00 Potassium Chloride (KCl Oral Soln) 20 meq 1X ONCE PEG Last administered on 12/11/18 11:20; Start 12/11/18 at 10:30; Stop 12/11/18 at 10:31; Status DC Lansoprazole (Prevacid) 30 mg DAILYAC PEG Last administered on 12/13/18 08:31; Start 12/11/18 at 11:30 Lacosamide (Vimpat) 200 mg BID PEG Last administered on 12/13/18 08:31; Start 12/11/18 at 11:00 Carbamazepine (TEGretol) 300 mg BID PEG Last administered on 12/13/18 08:31; Start 12/11/18 at 11:00 Levetiracetam (Keppra) 1,500 mg BID PEG Last administered on 12/13/18 08:31; Start 12/11/18 at 11:00 Acetylcysteine (Mucomyst 20% Resp Treatment) 600 mg Q6HRS NEB ; Start 12/11/18 at 12:00; Status Cancel Lansoprazole (Prevacid) 30 mg DAILY FT ; Start 12/13/18 at 09:00; Status UNV Active Scripts Active Reported Mirtazapine 15 Mg Tablet 1 Tab PO QHS Hydralazine Hcl 25 Mg Tablet 3 Tab PO TID Zyvox (Linezolid) 600 Mg/300 Ml Iv.soln 600 Mg IV Q12HR Isosorbide Dinitrate 20 Mg Tablet 20 Mg PO TID Protonix (Pantoprazole Sodium) 20 Mg Tablet.dr 20 Mg PO DAILY Sodium Bicarbonate 650 Mg Tablet 2 Tab PO BID Humalog (Insulin Lispro) 100 Unit/1 Ml Insuln.pen 100 Unit SQ SSI PRN Ferrous Sulfate 325 Mg Tablet 1 Tab PO BID Carafate (Sucralfate) 1 Gm/10 Ml Oral.susp 10 Ml PO BID Atorvastatin Calcium 10 Mg Tablet 10 Mg PO HS Vimpat (Lacosamide) 200 Mg Tablet 200 Mg PO BID Levetiracetam 100 Mg/1 Ml Solution 1,500 Mg PO BID Coreg (Carvedilol) 25 Mg Tablet 25 Mg PO BIDWMEALS Tegretol (Carbamazepine) 200 Mg Tablet 300 Mg PO BID Metafolbic Tablet (Vit B12/Lmefolate Ca/Vit B6/B2) 1 Each Tablet 1 Each PO DAILY Nephro-Zhanna Tablet (Folic Acid/Vitamin B Comp W-C) 0.8 Mg Tablet 1 Tab PO DAILY Senna Lax (Sennosides) 8.6 Mg Tablet 8.6 Mg PO DAILY Docusate Sodium 100 Mg Capsule 1 Cap PO DAILY Escitalopram Oxalate 20 Mg Tablet 20 Mg PO DAILY Norvasc (Amlodipine Besylate) 10 Mg Tablet 10 Mg PO DAILY Reglan (Metoclopramide Hcl) 10 Mg Tablet 1 Tab PO TID Prednisone (Prednisone) 10 Mg Tablet 10 Mg PO DAILY Xanax (Alprazolam) 0.5 Mg Tablet 0.5 Mg PO PRN Q6HRS PRN Xanax (Alprazolam) 0.5 Mg Tablet 1 Tab PO QID Pyridostigmine Bodfish 60 Mg Tablet 60 Mg PO QID Vitals/I & O Vital Sign - Last 24 Hours 12/12/18 12/12/18 12/12/18 12/12/18 10:00 11:00 12:00 12:00 Pulse 73 62 Resp 18 18 B/P (MAP) 127/53 (77) 119/76 (90) Pulse Ox 100 100 100 O2 Delivery Ventilator Ventilator Ventilator Mechanical Ventilator 12/12/18 12/12/18 12/12/18 12/12/18 12:00 13:00 15:00 15:28 Pulse 60 60 60 Resp 18 18 18 B/P (MAP) 125/80 (95) 119/76 (90) 144/76 (98) Pulse Ox 100 100 100 100 O2 Delivery Ventilator Ventilator Ventilator Ventilator 12/12/18 12/12/18 12/12/18 12/12/18 16:00 17:00 18:12 19:00 Temp 97.3 97.3 Pulse 60 73 76 Resp 18 29 B/P (MAP) 144/76 (98) 125/76 (92) 163/95 (117) Pulse Ox 100 100 99 O2 Delivery Mechanical Ventilator Ventilator Ventilator 12/12/18 12/12/18 12/12/18 12/12/18 20:00 20:00 20:21 21:00 Temp 97.3 97.3 Pulse 76 108 Resp 25 22 B/P (MAP) 158/82 (107) 175/92 (119) Pulse Ox 90 100 100 O2 Delivery Mechanical Ventilator Ventilator Ventilator 12/12/18 12/12/18 12/12/18 12/12/18 22:00 23:00 23:36 23:59 Pulse 100 100 Resp 30 23 B/P (MAP) 124/99 (107) 141/68 (92) Pulse Ox 97 100 100 O2 Delivery Ventilator Ventilator Ventilator Mechanical Ventilator 12/13/18 12/13/18 12/13/18 12/13/18 00:00 01:00 02:00 02:40 Temp 97.8 97.8 Pulse 74 74 66 Resp 21 19 B/P (MAP) 153/76 (101) 166/75 (105) 148/72 (97) Pulse Ox 99 100 100 100 O2 Delivery Ventilator Ventilator Ventilator 12/13/18 12/13/18 12/13/18 12/13/18 03:00 04:00 04:00 04:31 Temp 97.3 97.3 Pulse 64 65 Resp 16 15 B/P (MAP) 151/70 (97) 133/64 (87) Pulse Ox 100 100 100 O2 Delivery Ventilator Mechanical Ventilator Ventilator Ventilator 12/13/18 12/13/18 12/13/18 05:00 06:00 06:13 Pulse 66 64 Resp 16 16 B/P (MAP) 144/58 (86) 143/77 (99) Pulse Ox 100 100 100 O2 Delivery Ventilator Ventilator Ventilator Intake and Output 12/12/18 12/12/18 12/13/18 15:00 23:00 07:00 Intake Total 0 ml 0 ml 1014 ml Output Total 150 ml 100 ml 200 ml Balance -150 ml -100 ml 814 ml RYLEY CLARK MD December 13, 2018 09:35
[2018-12-13 09:40] LABS: BASE EXCESS ABG 6 mmol/L (-3-3); HCO3 ABG 31 mmol/L (21-28); PCO2 ABG 43 mmHg (35-46); PO2 ABG 83 mmHg (75-108); SAT O2 ABG 96 % (92-99)
[2018-12-13 09:44] LABS: FIO2 ABG 30
--- NOTE | 2018-12-13 09:47 | PDOC ---
Provider Note Provider Note discharge summary dictated # [id number] RYLEY CLARK MD December 13, 2018 09:47
[2018-12-13] MEDS ORDERED: ACET650S PEG (09:51)
[2018-12-13] MEDS ORDERED: IPRA3AMP29 NEB (09:51)
[2018-12-13] MEDS ORDERED: LANS30TA6 PEG (09:51)
--- NOTE | 2018-12-13 09:53 | SNU/HH DC ---
DISCHARGE ORDERS DISCHARGE INFORMATION: DISCHARGE DATE: December 13, 2018 FINAL DIAGNOSIS lower GI bleed CONDITION ON DISCHARGE: Stable CODE STATUS: Code Status: Full LTAC: ADMIT TO LTAC: Yes POST DISCHARGE ORDERS: DIET AFTER DISCHARGE: resume previous tube feeding and water flushes FOLLOW-UP: PHYSICIAN FOLLOW-UP: dr. cl[facility] at [facility] DISCHARGE MEDICATIONS: Home Meds Active Scripts Lansoprazole (PREVACID) 30 Mg Tab.rap.dr, 30 MG PEG DAILYAC for gerd for 30 Days, #30 TAB Prov:RYLEY CLARK MD 12/13/18 Acetaminophen (ACETAMINOPHEN ORAL LIQUID ) 650 Mg/20.3 Ml Solution, 650 MG PEG PRN Q6HRS PRN for MILD PAIN / TEMP for 30 Days, MISC Prov:RYLEY CLARK MD 12/13/18 Ipratropium/Albuterol Sulfate (DUONEB 0.5-3(2.5) MG/3 ML) 3 Ml Ampul.neb, 3 ML NEB RTQID for nebulizer rx for 30 Days, #120 EACH Prov:RYLEY LCARK MD 12/13/18 Reported Medications Mirtazapine (MIRTAZAPINE) 15 Mg Tablet, 1 TAB PO QHS for rx, #30 TAB 3 Refills 11/13/18 Hydralazine Hcl (HYDRALAZINE HCL) 25 Mg Tablet, 3 TAB PO TID for rx, #270 TAB 3 Refills 11/13/18 Linezolid (ZYVOX) 600 Mg/300 Ml Iv.soln, 600 MG IV Q12HR for rx, MISC 11/13/18 Isosorbide Dinitrate (ISOSORBIDE DINITRATE) 20 Mg Tablet, 20 MG PO TID for rx, TAB 11/13/18 Pantoprazole Sodium (PROTONIX) 20 Mg Tablet.dr, 20 MG PO DAILY for rx, TAB 11/13/18 Sodium Bicarbonate (SODIUM BICARBONATE) 650 Mg Tablet, 2 TAB PO BID for rx, #60 TAB 5 Refills 11/13/18 Insulin Lispro (HUMALOG) 100 Unit/1 Ml Insuln.pen, 100 UNIT SQ SSI PRN for rx, SYR 11/13/18 Ferrous Sulfate (FERROUS SULFATE) 325 Mg Tablet, 1 TAB PO BID for rx, #60 TAB 3 Refills 11/13/18 Sucralfate (CARAFATE) 1 Gm/10 Ml Oral.susp, 10 ML PO BID for rx, #120 ML 1 Refill 11/13/18 Atorvastatin Calcium (ATORVASTATIN CALCIUM) 10 Mg Tablet, 10 MG PO HS for FOR CHOLESTEROL, #30 TAB 0 Refills 11/13/18 Lacosamide (VIMPAT) 200 Mg Tablet, 200 MG PO BID for rx, TAB 11/13/18 Levetiracetam (LEVETIRACETAM) 100 Mg/1 Ml Solution, 1500 MG PO BID for rx, ML 11/13/18 Carvedilol (COREG) 25 Mg Tablet, 25 MG PO BIDWMEALS for CARDIAC, TAB 11/13/18 Carbamazepine (TEGRETOL) 200 Mg Tablet, 300 MG PO BID for rx, TAB 11/13/18 Vit B12/Lmefolate Ca/Vit B6/B2 (METAFOLBIC TABLET) 1 Each Tablet, 1 EACH PO DAILY for rx, TAB 11/13/18 Folic Acid/Vitamin B Comp W-C (NEPHRO-ABHINAV TABLET) 0.8 Mg Tablet, 1 TAB PO DAILY for rx, #30 TAB 5 Refills 11/13/18 Sennosides (SENNA LAX) 8.6 Mg Tablet, 8.6 MG PO DAILY for rx, TAB 11/13/18 Docusate Sodium (DOCUSATE SODIUM) 100 Mg Capsule, 1 CAP PO DAILY for rx, #30 CAP 11/13/18 Escitalopram Oxalate (ESCITALOPRAM OXALATE) 20 Mg Tablet, 20 MG PO DAILY for ANTI-DEPRESSANT, TAB 0 Refills 11/13/18 Amlodipine Besylate (NORVASC) 10 Mg Tablet, 10 MG PO DAILY for rx, TAB 11/13/18 Metoclopramide Hcl (REGLAN) 10 Mg Tablet, 1 TAB PO TID for rx, #90 TAB 11/13/18 Prednisone (PREDNISONE ) 10 Mg Tablet, 10 MG PO DAILY for rx, TAB 0 Refills 11/13/18 Alprazolam (XANAX) 0.5 Mg Tablet, 0.5 MG PO PRN Q6HRS PRN for ANXIETY / AGITATION, TAB 0 Refills 11/13/18 Alprazolam (XANAX) 0.5 Mg Tablet, 1 TAB PO QID for rx, #90 TAB 11/13/18 Pyridostigmine Maynard (PYRIDOSTIGMINE BROMIDE) 60 Mg Tablet, 60 MG PO QID for rx, TAB 11/13/18 RYLEY CLARK MD December 13, 2018 09:53
--- NOTE | 2018-12-13 09:53 | PDOC ---
Subjective: Subjective: No bleeding, no pain. Says he "gets worried" and didn't sleep well. Objective: Objective: Reviewed w/ RN - no bleeding, having normal stools. Plans to DC to [facility] today. Vital Signs: Vital Signs Date Time Temp Pulse Resp B/P (MAP) Pulse Ox O2 Delivery O2 Flow Rate FiO2 12/13/18 09:24 95 Ventilator 12/13/18 06:00 64 16 143/77 (99) 12/13/18 04:00 97.3 97.3 Labs: Laboratory Tests Test 12/12/18 13:00 12/12/18 18:20 12/13/18 00:20 12/13/18 05:00 Hemoglobin 9.1 g/dL 8.7 g/dL 7.5 g/dL 7.7 g/dL Prothrombin Time 17.2 SEC Prothromb Time International Ratio 1.4 White Blood Count 6.5 x10^3/uL Red Blood Count 2.57 x10^6/uL Hematocrit 22.7 % Mean Corpuscular Volume 88 fL Mean Corpuscular Hemoglobin 30 pg Mean Corpuscular Hemoglobin Concent 34 g/dL Red Cell Distribution Width 15.7 % Platelet Count 149 x10^3/uL Neutrophils (%) (Auto) 73 % Lymphocytes (%) (Auto) 7 % Monocytes (%) (Auto) 16 % Eosinophils (%) (Auto) 3 % Basophils (%) (Auto) 1 % Neutrophils # (Auto) 4.7 x10^3uL Lymphocytes # (Auto) 0.5 x10^3/uL Monocytes # (Auto) 1.0 x10^3/uL Eosinophils # (Auto) 0.2 x10^3/uL Basophils # (Auto) 0.1 x10^3/uL Sodium Level 143 mmol/L Potassium Level 3.2 mmol/L Chloride Level 105 mmol/L Carbon Dioxide Level 32 mmol/L Anion Gap 6 Blood Urea Nitrogen 32 mg/dL Creatinine 2.3 mg/dL Estimated GFR (Cockcroft-Gault) 36.0 Glucose Level 102 mg/dL Calcium Level 7.9 mg/dL Test 12/13/18 09:30 O2 Saturation 96 % Arterial Blood pH 7.47 Arterial Blood pCO2 at Patient Temp 43 mmHg Arterial Blood pO2 at Patient Temp 83 mmHg Arterial Blood HCO3 31 mmol/L Arterial Blood Base Excess 6 mmol/L FiO2 30 PE: GEN: NAD, up to chair LUNGS: trach/vent HEART: RRR ABD: S/ND/NT NEURO/PSYCH: A & O 3 A/P: Hematochezia +bleeding scan splenic flexure - resolved Anemia - stable post transfusions CKD -- Okay to DC to [facility]. Would not feed for another day - okay to continue meds per PEG. Continue PPI. ZANE BEE December 13, 2018 09:53
--- NOTE | 2018-12-13 10:27 | NUR ---
SS following up with discharge planning. Discharge orders received for return to [facility], ; fax [phone]. SS phoned and faxed clinical and discharge orders over to [facility]. Pt will discharge today and return to [facility] at 1200 via [facility]. Pt, pt's RN, and pt's POA, Marcia Polanco, .
[2018-12-13] MEDS ORDERED: POTASSIUM CHLORIDE 20 MEQ/15 ML ORAL LIQUID. PEG ONE (11:00)
[2018-12-13] MEDS ORDERED: FERROUS SULFATE ORAL 300 MG/5 ML SOLUTION. PEG SCH (12:00)
--- NOTE | 2018-12-13 12:11 | PDOC ---
PULMONARY PROGRESS NOTES Subjective NO DISTRESS Vitals Vital Signs Date Time Temp Pulse Resp B/P (MAP) Pulse Ox O2 Delivery O2 Flow Rate FiO2 12/13/18 11:50 97 Ventilator 12/13/18 11:00 64 16 138/77 (97) 12/13/18 04:00 97.3 97.3 General: Alert Lungs: Crackles Cardiovascular: S1, S2 Abdomen: Soft Neuro Exam: Alert Skin: Warm Labs Laboratory Tests Test 12/11/18 13:55 12/11/18 18:40 12/12/18 00:00 12/12/18 05:22 Hemoglobin 7.3 g/dL (13.0-17.5) 7.5 g/dL (13.0-17.5) 6.2 g/dL (13.0-17.5) 8.0 g/dL (13.0-17.5) White Blood Count 7.2 x10^3/uL (4.0-11.0) Red Blood Count 2.69 x10^6/uL (4.30-5.70) Hematocrit 23.7 % (39.0-53.0) Mean Corpuscular Volume 88 fL (79-100) Mean Corpuscular Hemoglobin 30 pg (25-35) Mean Corpuscular Hemoglobin Concent 34 g/dL (31-37) Red Cell Distribution Width 15.5 % (11.5-14.5) Platelet Count 135 x10^3/uL (140-400) Neutrophils (%) (Auto) 67 % (31-73) Lymphocytes (%) (Auto) 9 % (24-48) Monocytes (%) (Auto) 19 % (0-9) Eosinophils (%) (Auto) 4 % (0-3) Basophils (%) (Auto) 1 % (0-3) Neutrophils # (Auto) 4.8 x10^3uL (1.8-7.7) Lymphocytes # (Auto) 0.6 x10^3/uL (1.0-4.8) Monocytes # (Auto) 1.4 x10^3/uL (0.0-1.1) Eosinophils # (Auto) 0.3 x10^3/uL (0.0-0.7) Basophils # (Auto) 0.1 x10^3/uL (0.0-0.2) Sodium Level 144 mmol/L (136-145) Potassium Level 3.5 mmol/L (3.5-5.1) Chloride Level 106 mmol/L (98-107) Carbon Dioxide Level 35 mmol/L (21-32) Anion Gap 3 (6-14) Blood Urea Nitrogen 41 mg/dL (8-26) Creatinine 2.5 mg/dL (0.7-1.3) Estimated GFR (Cockcroft-Gault) 32.7 Glucose Level 109 mg/dL (70-99) Calcium Level 7.8 mg/dL (8.5-10.1) Test 12/12/18 13:00 12/12/18 18:20 12/13/18 00:20 12/13/18 05:00 Hemoglobin 9.1 g/dL (13.0-17.5) 8.7 g/dL (13.0-17.5) 7.5 g/dL (13.0-17.5) 7.7 g/dL (13.0-17.5) Prothrombin Time 17.2 SEC (11.7-14.0) Prothromb Time International Ratio 1.4 (0.8-1.1) White Blood Count 6.5 x10^3/uL (4.0-11.0) Red Blood Count 2.57 x10^6/uL (4.30-5.70) Hematocrit 22.7 % (39.0-53.0) Mean Corpuscular Volume 88 fL (79-100) Mean Corpuscular Hemoglobin 30 pg (25-35) Mean Corpuscular Hemoglobin Concent 34 g/dL (31-37) Red Cell Distribution Width 15.7 % (11.5-14.5) Platelet Count 149 x10^3/uL (140-400) Neutrophils (%) (Auto) 73 % (31-73) Lymphocytes (%) (Auto) 7 % (24-48) Monocytes (%) (Auto) 16 % (0-9) Eosinophils (%) (Auto) 3 % (0-3) Basophils (%) (Auto) 1 % (0-3) Neutrophils # (Auto) 4.7 x10^3uL (1.8-7.7) Lymphocytes # (Auto) 0.5 x10^3/uL (1.0-4.8) Monocytes # (Auto) 1.0 x10^3/uL (0.0-1.1) Eosinophils # (Auto) 0.2 x10^3/uL (0.0-0.7) Basophils # (Auto) 0.1 x10^3/uL (0.0-0.2) Sodium Level 143 mmol/L (136-145) Potassium Level 3.2 mmol/L (3.5-5.1) Chloride Level 105 mmol/L (98-107) Carbon Dioxide Level 32 mmol/L (21-32) Anion Gap 6 (6-14) Blood Urea Nitrogen 32 mg/dL (8-26) Creatinine 2.3 mg/dL (0.7-1.3) Estimated GFR (Cockcroft-Gault) 36.0 Glucose Level 102 mg/dL (70-99) Calcium Level 7.9 mg/dL (8.5-10.1) Test 12/13/18 09:30 O2 Saturation 96 % (92-99) Arterial Blood pH 7.47 (7.35-7.45) Arterial Blood pCO2 at Patient Temp 43 mmHg (35-46) Arterial Blood pO2 at Patient Temp 83 mmHg (75-108) Arterial Blood HCO3 31 mmol/L (21-28) Arterial Blood Base Excess 6 mmol/L (-3-3) FiO2 30 Laboratory Tests Test 12/12/18 13:00 12/12/18 18:20 12/13/18 00:20 12/13/18 05:00 Hemoglobin 9.1 g/dL (13.0-17.5) 8.7 g/dL (13.0-17.5) 7.5 g/dL (13.0-17.5) 7.7 g/dL (13.0-17.5) Prothrombin Time 17.2 SEC (11.7-14.0) Prothromb Time International Ratio 1.4 (0.8-1.1) White Blood Count 6.5 x10^3/uL (4.0-11.0) Red Blood Count 2.57 x10^6/uL (4.30-5.70) Hematocrit 22.7 % (39.0-53.0) Mean Corpuscular Volume 88 fL (79-100) Mean Corpuscular Hemoglobin 30 pg (25-35) Mean Corpuscular Hemoglobin Concent 34 g/dL (31-37) Red Cell Distribution Width 15.7 % (11.5-14.5) Platelet Count 149 x10^3/uL (140-400) Neutrophils (%) (Auto) 73 % (31-73) Lymphocytes (%) (Auto) 7 % (24-48) Monocytes (%) (Auto) 16 % (0-9) Eosinophils (%) (Auto) 3 % (0-3) Basophils (%) (Auto) 1 % (0-3) Neutrophils # (Auto) 4.7 x10^3uL (1.8-7.7) Lymphocytes # (Auto) 0.5 x10^3/uL (1.0-4.8) Monocytes # (Auto) 1.0 x10^3/uL (0.0-1.1) Eosinophils # (Auto) 0.2 x10^3/uL (0.0-0.7) Basophils # (Auto) 0.1 x10^3/uL (0.0-0.2) Sodium Level 143 mmol/L (136-145) Potassium Level 3.2 mmol/L (3.5-5.1) Chloride Level 105 mmol/L (98-107) Carbon Dioxide Level 32 mmol/L (21-32) Anion Gap 6 (6-14) Blood Urea Nitrogen 32 mg/dL (8-26) Creatinine 2.3 mg/dL (0.7-1.3) Estimated GFR (Cockcroft-Gault) 36.0 Glucose Level 102 mg/dL (70-99) Calcium Level 7.9 mg/dL (8.5-10.1) Test 12/13/18 09:30 O2 Saturation 96 % (92-99) Arterial Blood pH 7.47 (7.35-7.45) Arterial Blood pCO2 at Patient Temp 43 mmHg (35-46) Arterial Blood pO2 at Patient Temp 83 mmHg (75-108) Arterial Blood HCO3 31 mmol/L (21-28) Arterial Blood Base Excess 6 mmol/L (-3-3) FiO2 30 Medications Active Scripts Medications Dose Route/Sig Max Daily Dose Days Date Category Mirtazapine 15 Mg Tablet 1 Tab PO QHS 11/13/18 Reported Hydralazine Hcl 25 Mg Tablet 3 Tab PO TID 11/13/18 Reported Zyvox (Linezolid) 600 Mg/300 Ml Iv.soln 600 Mg IV Q12HR 11/13/18 Reported Isosorbide Dinitrate 20 Mg Tablet 20 Mg PO TID 11/13/18 Reported Protonix (Pantoprazole Sodium) 20 Mg Tablet.dr 20 Mg PO DAILY 11/13/18 Reported Sodium Bicarbonate 650 Mg Tablet 2 Tab PO BID 11/13/18 Reported Humalog (Insulin Lispro) 100 Unit/1 Ml Insuln.pen 100 Unit SQ SSI PRN 11/13/18 Reported Ferrous Sulfate 325 Mg Tablet 1 Tab PO BID 11/13/18 Reported Carafate (Sucralfate) 1 Gm/10 Ml Oral.susp 10 Ml PO BID 11/13/18 Reported Atorvastatin Calcium 10 Mg Tablet 10 Mg PO HS 11/13/18 Reported Vimpat (Lacosamide) 200 Mg Tablet 200 Mg PO BID 11/13/18 Reported Levetiracetam 100 Mg/1 Ml Solution 1,500 Mg PO BID 11/13/18 Reported Coreg (Carvedilol) 25 Mg Tablet 25 Mg PO BIDWMEALS 11/13/18 Reported Tegretol (Carbamazepine) 200 Mg Tablet 300 Mg PO BID 11/13/18 Reported Metafolbic Tablet (Vit B12/Lmefolate Ca/Vit B6/B2) 1 Each Tablet 1 Each PO DAILY 11/13/18 Reported Nephro-Zhanna Tablet (Folic Acid/Vitamin B Comp W-C) 0.8 Mg Tablet 1 Tab PO DAILY 11/13/18 Reported Senna Lax (Sennosides) 8.6 Mg Tablet 8.6 Mg PO DAILY 11/13/18 Reported Docusate Sodium 100 Mg Capsule 1 Cap PO DAILY 11/13/18 Reported Escitalopram Oxalate 20 Mg Tablet 20 Mg PO DAILY 11/13/18 Reported Norvasc (Amlodipine Besylate) 10 Mg Tablet 10 Mg PO DAILY 11/13/18 Reported Reglan (Metoclopramide Hcl) 10 Mg Tablet 1 Tab PO TID 11/13/18 Reported Prednisone (Prednisone) 10 Mg Tablet 10 Mg PO DAILY 11/13/18 Reported Xanax (Alprazolam) 0.5 Mg Tablet 0.5 Mg PO PRN Q6HRS PRN 11/13/18 Reported Xanax (Alprazolam) 0.5 Mg Tablet 1 Tab PO QID 11/13/18 Reported Pyridostigmine [place] 60 Mg Tablet 60 Mg PO QID 11/13/18 Reported Impression . IMPRESSION: 1. Vlemn-do-gctkhxc hypoxemic respiratory failure. 2. Acute drop in hemoglobin. 3. Acute gastrointestinal bleed. 4. History of small-bowel obstruction, corrected with nonsurgical. 5. Prior history of chronic obstructive pulmonary disease, obstructive sleep apnea and pulmonary fibrosis along with secondary pulmonary hypertension, the patient had been on chronic steroid use. 6. History of myasthenia gravis, status post thymectomy. 7. Recent sepsis and aspiration pneumonia. 8. Chronic kidney disease. 9. History of seizure/traumatic brain injury. 10. Deep venous thrombosis of the right upper extremity. 11. Coronary artery disease with previous coronary artery bypass grafting. 12. Severe protein malnutrition. 13. Hematochezia. 14. Gastroesophageal reflux. Plan . PT TO TRANSFER TO [facility]W DR LANGFORD AND DR YEE MONITOR HH TRANSFUSE NEEDED GALLO RICHARD MD December 13, 2018 12:11
--- NOTE | 2018-12-13 12:31 | DS ---
DATE OF DISCHARGE: 12/13/2018 CONSULTANTS: Include Dr. Morgan, Dr. Brian Meza, Dr. Ordaz, Dr. Duran and Dr. Nixon. FINAL DIAGNOSES: 1. An acute lower gastrointestinal bleed from the splenic flexure of the colon, seen on a GI bleeding scan. 2. Acute blood loss anemia. 3. Acute hypoxic and hypercapnic respiratory failure, on the ventilator. 4. Myasthenia gravis. 5. Tracheostomy. 6. Oropharyngeal dysphagia. 7. Chronic kidney disease stage 3. 8. Coronary artery disease. 9. Right subclavian vein thrombosis. 10. Hypertension. 11. Hyperlipidemia. 12. Seizure disorder. 13. Hypokalemia. 14. Severe protein-calorie malnutrition. HOSPITAL COURSE: The patient is a 53-year-old -Citizen Of [place] male, who resides in a [facility], with a past history of traumatic brain injury, seizure disorder, pulmonary fibrosis, hypertension, gastroesophageal reflux disease, coronary artery disease, depression, pulmonary hypertension and chronic kidney disease stage 3, admitted initially to the [facility] Emergency Room with nausea, vomiting and abdominal pain and developed aspiration pneumonia and had to be intubated, placed on a ventilator and could not be weaned off the ventilator. He had a tracheostomy and PEG placed on 10/31/2018. He had oropharyngeal dysphagia. His aspiration pneumonia was treated. His hypertension was labile. The patient was admitted to [facility] on 11/06/2018 and could not be weaned off the ventilator at this time and he developed a lower GI bleed, with bright red blood per rectum and some clots. The patient had a GI bleeding scan, which showed active bleeding at the splenic flexure of the colon, prompting admission to the [facility] Intensive Care Unit. He continued to have some bleeding and received a total of 6 units of packed red blood cells while he was in Intensive Care Unit. His hemoglobin stabilized and his last episode of GI bleeding was at 04:00 p.m. on 12/12/2018 and there was a small amount per the nurse. His hemoglobin has been stable and he has not required any further transfusions. He will be started on his tube feedings today. His potassium was low and that will be replaced. He was seen by Dr. Brian Meza for Infectious Disease, although he was off antibiotics; Dr. Ordaz for his chronic kidney disease stage and Dr. Duran for the GI bleed. He did not require any type of intervention as the GI bleeding stopped on its own. He also was seen by Dr. Morgan for Pulmonary. He was still on the ventilator and he will be dismissed later today back to [facility] if it is okay with Dr. Duran. His tube feeding and water flushes will be resumed. DISCHARGE MEDICATIONS: He will be dismissed on Tylenol 650 mg every 6 hours p.r.n., alprazolam 0.5 mg every 6 hours p.r.n. through the PEG, atorvastatin 10 mg at bedtime, DuoNebs nebulized treatments q.i.d., Vimpat 200 mg b.i.d., Prevacid 30 mg every day through the PEG, Mestinon 60 mg every 6 hours, Carafate 1 gram b.i.d., carbamazepine 300 mg b.i.d., Keppra 1500 mg b.i.d., prednisone 10 mg every day and ferrous sulfate 300 mg b.i.d. RYLEY CLARK MD DR: GUS/philly JOB#: [id number] / [id number]
== END 2018-12-13 12:15 | disposition home or self-care (01) | DRG 208 ==
LOC: 1 WEST ICU 20:47
PROVIDERS: ADMIT Internal Medicine; ATTEND Internal Medicine
PROC: 5A1945Z Respiratory Ventilation, 24-96 Consecutive Hours (ICD-10-PCS; principal; 2018-12-10)
PROC: 30233N1 Transfusion of Nonautologous Red Blood Cells into Peripheral Vein, Percutaneous Approach (ICD-10-PCS; 2018-12-10)
DX: J96.22 Acute and chronic respiratory failure with hypercapnia (principal); E43 Unspecified severe protein-calorie malnutrition; K92.2 Gastrointestinal hemorrhage, unspecified; D62 Acute posthemorrhagic anemia; I13.0 Hypertensive heart and chronic kidney disease with heart failure and stage 1 through stage 4 chronic kidney disease, or unspecified chronic kidney disease; I82.B11 Acute embolism and thrombosis of right subclavian vein; N17.9 Acute kidney failure, unspecified; K56.609 Unspecified intestinal obstruction, unspecified as to partial versus complete obstruction; J96.21 Acute and chronic respiratory failure with hypoxia; G40.909 Epilepsy, unspecified, not intractable, without status epilepticus; I25.10 Atherosclerotic heart disease of native coronary artery without angina pectoris; F32.9 Major depressive disorder, single episode, unspecified; N18.3 Chronic kidney disease, stage 3 (moderate); G70.00 Myasthenia gravis without (acute) exacerbation; E78.5 Hyperlipidemia, unspecified; I50.9 Heart failure, unspecified; R13.12 Dysphagia, oropharyngeal phase; E87.6 Hypokalemia; F03.90 Unspecified dementia, unspecified severity, without behavioral disturbance, psychotic disturbance, mood disturbance, and anxiety; K21.9 Gastro-esophageal reflux disease without esophagitis; G47.33 Obstructive sleep apnea (adult) (pediatric); J44.9 Chronic obstructive pulmonary disease, unspecified; I27.29 Other secondary pulmonary hypertension; Z95.5 Presence of coronary angioplasty implant and graft; Z87.01 Personal history of pneumonia (recurrent); Z86.718 Personal history of other venous thrombosis and embolism; Z79.899 Other long term (current) drug therapy; Z79.52 Long term (current) use of systemic steroids; Z79.01 Long term (current) use of anticoagulants; Z88.8 Allergy status to other drugs, medicaments and biological substances; Z88.1 Allergy status to other antibiotic agents; Z91.013 Allergy to seafood; Z86.73 Personal history of transient ischemic attack (TIA), and cerebral infarction without residual deficits; Z93.0 Tracheostomy status; Z93.1 Gastrostomy status; Z68.28 Body mass index [BMI] 28.0-28.9, adult; Z95.1 Presence of aortocoronary bypass graft; Z86.14 Personal history of Methicillin resistant Staphylococcus aureus infection; Z85.238 Personal history of other malignant neoplasm of thymus; Z80.0 Family history of malignant neoplasm of digestive organs
CPT/HCPCS: 36415; 36600; 71045; 80048; 80053; 82805; 82962; 85014; 85018; 85025; 85610; 86850; 86900; 86901; 86920; 87641; 93005; 94003; 94640; J3490; J7512; J7620; P9016; 97535